=== PATIENT | male | born 1950 | race African-American/Black ===

== ENCOUNTER 2025-07-04 08:05 | Outpatient (CLI) | payer MEDICARE, OTHER, SELFPAY ==
--- OUTSIDE RECORDS SUMMARY | 2024-03-03 08:00 | XMS_ITS ---
Author Organization [facility] Address [address] [place] [address] Care Team Providers Care Operator And Truck Driver Name Role Phone Blake Rhodes Unavailable [phone] Medications Medication SIG (Take, Route, Frequency, Duration) Notes Start Date End Date Status Calcitriol 0.25 MCG 1 capsule Orally Twi ce a day; Duration: 09/01/2023 05/28/2024 Active Losartan Potassium 100 MG 1 tablet Orall y Once a day; Duration: 09/01/2023 Active Bumetanide 2 MG 1 tablet Orally Once a day; Duration: 90 days 06/09/2023 Active Calcitriol 0.25 MCG 1 capsule Orally Onc e a day; Duration: 90 day(s) 06/09/2023 03/05/2024 Active Losartan Potassium 50 MG 1 tablet Orally Once a day; Duration: 90 02/03/2023 Active Losartan Potassium 50 MG 1 tablet Orally Once a day; Duration: 11/18/2022 Active Social History Sex Assigned At : Social History Observation Description Sex Assigned At Male Encounters Encounter Location Date Provider Diagnosis [place] [facility] [address] [facility] [address] [place] [address] 03/03/2024 Blake Rhodes Chronic kidney disease, stage 3a N18.31 ; Essential hypertension I10 ; Unspecified atrial fibrillation I48.91 ; Heart failure, unspecified I50.9 and Vitamin D deficiency, unspecified E55.9 Assessments Encounter Date Diagnosis (ICD Code) Assessment Notes Treatment Notes Treatment Clinical Notes Section Notes 03/03/2024 Chronic kidney disease, stage 3a (ICD-10 - N18.31) 03/03/2024 Essential hypertension (ICD-10 - I10) 03/03/2024 Unspecified atrial fibrillation (ICD-10 - I48.91) 03/03/2024 Heart failure, unspecified (ICD-10 - I50.9) 03/03/2024 Vitamin D deficiency, unspecified (ICD-10 - E55.9) Plan Of Treatment Next Appt Details Provider Name:Blake Carmelo , 07/05/2025 04:00:00 PM, [address] [facility], [place], [address], Progress Notes * Matt SHELTONDOB: 0 (75 yo M)Acc No.[id number]:03/03/2024 Progress Notes Patient: Matt LINARES Provider: Bright MADSEN MD, F.A.C.P, F.A.S.N. :1950 A ge:74 Y S ex:Male Date:03/03/2024 Address:[address] [place], [place] [id number] Subjective: * Chief Complaints: * * Medical History: * Medications: T aking Losartan Potassium 50 MG Tablet 1 tablet Orally Once a day , Taking Losartan Potassium 50 MG Tablet 1 tablet Orally Once a day , Taking Calcitriol 0.25 MCG Capsule 1 capsule Orally Once a day , stop date 03/05/2024, Taking Bumetanide 2 MG Tablet 1 tablet Orally Once a day , Taking Losartan Potassium 100 MG Tablet 1 tablet Orally Once a day , Taking Calcitriol 0.25 MCG Capsule 1 capsule Orally Twice a day , stop date 05/28/2024 Objective: * Vitals: Assessment: * Assessment: 1. C hronic kidney disease, stage 3a - N18.31 (Primary) 2 . E ssential hypertension - I10 3 . U nspecified atrial fibrillation - I48.91 4 .?Heart failure, unspecified - I50.9 5 . V itamin D deficiency, unspecified - E55.9 Plan: * Treatment: * Billing Information: * Visit Code: 65240 Office Visit, Est Pt., Level 4. * Procedure Codes: * Electronic signature of Kimberley Rhodes MD on 07/04/2025 at 08:17 AM CHIEF DEVELOPMENT OFFICER Sign off status: Pending * Provider: Bright MADSEN MD, Clarisa.Marcos.C.P, F.A.S.N. Date: 0 03/03/2024 Generated for Printing/Faxing/eTransmitting on: 1 09/03/2024 08:17 AM CHIEF DEVELOPMENT OFFICER
--- OUTSIDE RECORDS SUMMARY | 2024-05-19 07:30 | XMS_ITS ---
Author Organization [facility] Address [address] [place] [address] Care Team Providers Care Java Lead Name Role Phone Blake Rhodes Unavailable [phone] Medications Medication SIG (Take, Route, Frequency, Duration) Notes Start Date End Date Status Bumetanide 2 MG 1 tablet Orally Once a day; Duration: 90 days 06/09/2023 Active Losartan Potassium 100 MG 1 tablet Orall y Once a day; Duration: 09/01/2023 Active Calcitriol 0.25 MCG 1 capsule Orally Twi ce a day; Duration: 09/01/2023 05/28/2024 Active Losartan Potassium 50 MG 1 tablet Orally Once a day; Duration: 11/18/2022 Active Losartan Potassium 50 MG 1 tablet Orally Once a day; Duration: 02/03/2023 Active Ergocalciferol 1.25 MG (28858 UT) 1 capsule Orally twice a week; Duration: 90 day(s) 03/03/2024 11/28/2024 Active Social History Sex Assigned At : Social History Observation Description Sex Assigned At Male Encounters Encounter Location Date Provider Diagnosis [place] [facility] [address] [facility] [address] [place] [address] 05/19/2024 Blake Rhodes Chronic kidney disease, stage 3a N18.31 ; Essential hypertension I10 ; Unspecified atrial fibrillation I48.91 ; Heart failure, unspecified I50.9 and Vitamin D deficiency, unspecified E55.9 Assessments Encounter Date Diagnosis (ICD Code) Assessment Notes Treatment Notes Treatment Clinical Notes Section Notes 05/19/2024 Chronic kidney disease, stage 3a (ICD-10 - N18.31) 05/19/2024 Essential hypertension (ICD-10 - I10) 05/19/2024 Unspecified atrial fibrillation (ICD-10 - I48.91) 05/19/2024 Heart failure, unspecified (ICD-10 - I50.9) 05/19/2024 Vitamin D deficiency, unspecified (ICD-10 - E55.9) Plan Of Treatment Next Appt Details Provider Name:Blake Carmelo , 07/05/2025 04:00:00 PM, [address] , [place], [address], Progress Notes * Matt SHELTONDOB: 0 (75 yo M)Acc No.[id number]:05/19/2024 Progress Notes Patient: Matt LINARES Provider: Bright MADSEN MD, F.Marcos.C.P, F.A.S.N. :1950 A ge:74 Y S ex:Male Date:05/19/2024 Address:[address] [place], [place] [id number] Subjective: * Chief Complaints: * * Medical History: * Medications: T aking Ergocalciferol 1.25 MG (33262 UT) Capsule 1 capsule Orally twice a week , stop date 11/28/2024, Taking Losartan Potassium 50 MG Tablet 1 tablet Orally Once a day , Taking Losartan Potassium 50 MG Tablet 1 tablet Orally Once a day , Taking Bumetanide 2 MG Tablet 1 tablet [...] Treatment: * Billing Information: * Visit Code: 82649 Office Visit, Est Pt., Level 4. * Procedure Codes: * Electronic signature of Kimberley Rhodes MD on 07/04/2025 at 08:16 AM WINE MASTER Sign off status: Pending * Provider: Bright MADSEN MD, Clarisa.Marcos.C.P, F.A.S.N. Date: 0 05/19/2024 Generated for Printing/Fagoldyg/eTransmitting on: 1 09/03/2024 08:16 AM WINE MASTER
--- OUTSIDE RECORDS SUMMARY | 2024-09-01 07:30 | XMS_ITS ---
Author Organization [facility] Address [address] [place] [address] Care Team Providers Care Emergency Management Specialist Name Role Phone Carmelo Blake Unavailable [phone] Social History Sex Assigned At : Social History Observation Description Sex Assigned At Male Problems Problem Type SNOMED Code ICD Code Onset Dates Problem Status W/U Status Risk Notes Problem Renal osteodystrophy (40731233) Renal osteodystrophy (N25.0) Active confirmed Problem Edema (49665854) Edema, unspecified (R60.9) Active confirmed Problem Small kidney (058001896) Small kidney, unspecified (N27.9) Active confirmed Problem Proteinuria (28437588) Proteinuria, unspecified (R80.9) Active confirmed Encounters Encounter Location Date Provider Diagnosis [facility] [place] [facility] [address] [place] [address] 09/01/2024 Blake Rhodes Chronic kidney disea se, stage 3a N18.31 ; Renal osteodystrophy N25.0 ; Edema, unspecified R60.9 ; Proteinuria, unspecified R80.9 ; Small kidney, unspecified N27.9 and Vitamin D deficiency, unspecified E55.9 Assessments Encounter Date Diagnosis (ICD Code) Assessment Notes Treatment Notes Treatment Clinical Notes Section Notes 09/01/2024 Chronic kidney disease, stage 3a (ICD-10 - N18.31) 09/01/2024 Renal osteodystrophy (ICD-10 - N25.0) 09/01/2024 Edema, unspecified (ICD-10 - R60.9) 09/01/2024 Proteinuria, unspecified (ICD-10 - R80.9) 09/01/2024 Small kidney, unspecified (ICD-10 - N27.9) 09/01/2024 Vitamin D deficiency, unspecified (ICD-10 - E55.9) Plan Of Treatment Next Appt Details Provider Name:Blake Rhodes , 07/05/2025 04:00:00 PM, [address] [facility], [place], [address], Progress Notes * Matt SHELTONDOB: 0 (75 yo M)Acc No.[id number]:09/01/2024 Progress Notes Patient: Matt LINARES Provider: Bright MADSEN MD, F.A.C.P, F.A.S.N. :1950 A ge:74 Y S ex:Male Date:09/01/2024 Address:[address] [place], [place] [id number] Subjective: * Chief Complaints: * * Medical History: Objective: * Vitals: Assessment: * Assessment: 1. C hronic kidney disease, stage 3a - N18.31 (Primary) 2 . R enal osteodystrophy - N25.0 3 . E monique, unspecified - R60.9 4 . P roteinuria, unspecified - R80.9 5 . S mall kidney, unspecified - N27.9 6 . V itamin D deficiency, unspecified - E55.9 Plan: * Treatment: * Billing Information: * Visit Code: 80518 Office Visit, Est Pt., Level 4. * Procedure Codes: * Electronic signature of Kimberley Rhodes MD on 07/04/2025 at 08:16 AM BAND NAILER Sign off status: Pending * Provider: Bright MADSEN MD, F.A.C.P, F.A.S.N. Date: 0 09/01/2024 Generated for Printing/Faxing/eTransmitting on: 09/03/2024 08:16 AM BAND NAILER
--- OUTSIDE RECORDS SUMMARY | 2024-10-27 07:30 | XMS_ITS ---
Author Organization [facility] Address [address] [place] [address] Care Team Providers Care Box Coverer Hand Name Role Phone Carmelo Blake Unavailable [phone] Social History Sex Assigned At : Social History Observation Description Sex Assigned At Male Encounters Encounter Location Date Provider Diagnosis [place] [facility] [address] [facility] [address] [place] [address] 10/27/2024 Blake Rhodes Chronic kidney disea se, stage 2 (mild) N18.2 ; Essential hypertension I10 ; Unspecified atrial fibrillation I48.91 ; Heart failure, unspecified I50.9 ; Vitamin D deficiency, unspecified E55.9 ; Renal osteodystrophy N25.0 ; Edema, unspecified R60.9 ; Small kidney, unspecified N27.9 ; Proteinuria, unspecified R80.9 ; Secondary hyperparathyroidism of renal origin N25.81 ; 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 and Type 1 diabetes mellitus with hypoglycemia without coma E10.649 Assessments Encounter Date Diagnosis (ICD Code) Assessment Notes Treatment Notes Treatment Clinical Notes Section Notes 10/27/2024 Chronic kidney disea se, stage 2 (mild) (ICD-10 - N18.2) 10/27/2024 Essential hypertensi on (ICD-10 - I10) 10/27/2024 Unspecified atrial fibrillation (ICD-10 - I48.91) 10/27/2024 Heart failure, unspecified (ICD-10 - I50.9) 10/27/2024 Vitamin D deficiency , unspecified (ICD-10 - E55.9) 10/27/2024 Renal osteodystrophy (ICD-10 - N25.0) 10/27/2024 Edema, unspecified (ICD-10 - R60.9) 10/27/2024 Small kidney, unspecified (ICD-10 - N27.9) 10/27/2024 Proteinuria, unspecified (ICD-10 - R80.9) 10/27/2024 Secondary hyperparathyroidism of renal origin (ICD-10 - N25.81) 10/27/2024 Mixed disorder of acid-base balance (ICD-10 - E87.4) 10/27/2024 Type 1 diabetes mellitus with hypoglycemia without coma (ICD-10 - E10.649) Plan Of Treatment Next Appt Details Provider Name:Blake Rhodes , 07/05/2025 04:00:00 PM, [address] [facility], [place], [address], Progress Notes * Matt SHELTONDOB: 0 (75 yo M)Acc No.[id number]:10/27/2024 Progress Notes Patient: Matt LINARES Provider: Bright MADSEN MD, F.A.C.P, F.A.S.N. :1950 A ge:74 Y S ex:Male Date:10/27/2024 Address:[address] [place], [place] [id number] Subjective: * Chief Complaints: * * Medical History: Objective: * Vitals: Assessment: * Assessment: 1. C hronic kidney disease, stage 2 (mild) - N18.2 (Primary) 2 . E ssential hypertension - I10 3 . U nspecified atrial fibrillation - I48.91 ?4. H eart failure, unspecified - I50.9 5 . V itamin D deficiency, unspecified - E55.9 6 . R enal osteodystrophy - N25.0 7 . E monique, unspecified - R60.9 8 . S mall kidney, unspecified - N27.9 9 .?Proteinuria, unspecified - R80.9 1 0. S econdary hyperparathyroidism of renal origin - N25.81 1 1. M ixed disorder of acid-base balance - E87.4 ?12. T ype 1 diabetes mellitus with hypoglycemia without coma - E10.649 Plan: * Treatment: * Billing Information: * Visit Code: 63979 Office Visit, Est Pt., Level 4. * Procedure Codes: * Electronic signature of Kimberley Rhodes MD on 07/04/2025 at 08:16 AM DIRECTOR FOOD SAFETY Sign off status: Pending * Provider: Bright MADSEN MD, F.A.C.P, F.A.S.N. Date: 0 10/27/2024 Generated for Printing/Faxing/eTransmitting on: 1 09/03/2024 08:16 AM DIRECTOR FOOD SAFETY
--- OUTSIDE RECORDS SUMMARY | 2024-12-29 06:45 | XMS_ITS ---
Author Organization [facility] Address [address] [address] [place] [address] Care Team Providers Care Seasonal Sales Associate Name Role Phone Carmelo Blake Unavailable [phone] Medications Medication SIG (Take, Route, Frequency, Duration) Notes Start Date End Date Status Losartan Potassium 100 MG 1 tablet Orall y Once a day; Duration: 09/01/2023 Active Bumetanide 2 MG 1 tablet Orally Once a day; Duration: 90 days 06/09/2023 Active Losartan Potassium 50 MG 1 tablet Orally Once a day; Duration: 02/03/2023 Active Losartan Potassium 50 MG 1 tablet Orally Once a day; Duration: 11/18/2022 Active Social History Sex Assigned At : Social History Observation Description Sex Assigned At Male Problems Problem Type SNOMED Code ICD Code Onset Dates Problem Status W/U Status Risk Notes Problem Benign prostatic hypertrophy without outflow obstruction (003685163) Benign prostatic hyperplasia without lower urinary tract symptoms (N40.0) Active confirmed Encounters Encounter Location Date Provider Diagnosis [place] [facility] [address] [facility] [address] [place] [address] 12/29/2024 Blake Rhodes Chronic kidney disea se, stage 2 (mild) N18.2 ; Essential hypertension I10 ; Unspecified atrial fibrillation I48.91 ; Heart failure, unspecified I50.9 ; Vitamin D deficiency, unspecified E55.9 ; Renal osteodystrophy N25.0 ; Edema, unspecified R60.9 ; Small kidney, unspecified N27.9 ; Proteinuria, unspecified R80.9 ; Elevated prostate specific antigen (PSA) R97.20 and Benign prostatic hyperplasia without lower urinary tract symptoms N40.0 Assessments Encounter Date Diagnosis (ICD Code) Assessment Notes Treatment Notes Treatment Clinical Notes Section Notes 12/29/2024 Chronic kidney disease, stage 2 (mild) (ICD-10 - N18.2) 12/29/2024 Essential hypertension (ICD-10 - I10) 12/29/2024 Unspecified atrial fibrillation (ICD-10 - I48.91) 12/29/2024 Heart failure, unspecified (ICD-10 - I50.9) 12/29/2024 Vitamin D deficiency, unspecified (ICD-10 - E55.9) 12/29/2024 Renal osteodystrophy (ICD-10 - N25.0) 12/29/2024 Edema, unspecified (ICD-10 - R60.9) 12/29/2024 Small kidney, unspecified (ICD-10 - N27.9) 12/29/2024 Proteinuria, unspecified (ICD-10 - R80.9) 12/29/2024 Elevated prostate specific antigen (PSA) (ICD-10 - R97.20) 12/29/2024 Benign prostatic hyperplasia without lower urinary tract symptoms (ICD-10 - N40.0) Plan Of Treatment Next Appt Details Provider Name:Blake Rhodes , 07/05/2025 04:00:00 PM, [address] [place] [address], [address], Progress Notes * Matt SHELTONDOB: 0 (75 yo M)Acc No.[id number]:12/29/2024 Progress Notes Patient: Matt LINARES Provider: Bright MADSEN MD, F.A.C.P, F.A.S.N. :1950 A ge:74 Y S ex:Male Date:12/29/2024 Address:[address] [place], [place] [id number] Subjective: * Chief Complaints: * * Medical History: * Medications: T aking Losartan Potassium 50 MG Tablet 1 tablet Orally Once a day , Taking Losartan Potassium 50 MG Tablet 1 tablet Orally Once a day , Taking Bumetanide 2 MG Tablet 1 tablet Orally Once a day , Taking Losartan Potassium 100 MG Tablet 1 tablet Orally Once a day Objective: * Vitals: Assessment: * Assessment: 1. [...] 9 .?Proteinuria, unspecified - R80.9 1 0. E levated prostate specific antigen (PSA) - R97.20 1 1. B enign prostatic hyperplasia without lower urinary tract symptoms - N40.0 Plan: * Treatment: * Billing Information: * Visit Code: 84158 Office Visit, Est Pt., Level 4. * Procedure Codes: * Electronic signature of Kimberley Rhodes MD on 07/04/2025 at 08:15 AM AVIONICS ENGINEER Sign off status: Pending * Provider: Bright MADSEN MD, F.A.C.P, F.A.S.N. Date: 0 12/29/2024 Generated for Printing/Faxing/eTransmitting on: 09/03/2024 08:15 AM AVIONICS ENGINEER
--- OUTSIDE RECORDS SUMMARY | 2025-03-30 07:30 | XMS_ITS ---
Author Organization [facility] Address [address] [place] [address] Care Team Providers Care Pool Table Operator Name Role Phone CarmeloLuisaBlake Unavailable [phone] Social History Sex Assigned At : Social History Observation Description Sex Assigned At Male Problems Problem Type SNOMED Code ICD Code Onset Dates Problem Status W/U Status Risk Notes Problem Chronic kidney disease stage 3A (disorder) (564861382) Chronic kidney disease, stage 3a (N18.31) Active confirmed Problem Metabolic disorder (26201837) Metabolic disorder, unspecified (E88.9) Active confirmed Problem Secondary hyperparathyroidism of renal origin (02547259) Secondary hyperparathyroidism of renal origin (N25.81) Active confirmed Encounters Encounter Location Date Provider Diagnosis [facility] [place] [facility] [address] [place] [address] 03/30/2025 Blake Rhodes Chronic kidney disea se, stage 3a N18.31 ; Essential hypertension I10 ; Unspecified atrial fibrillation I48.91 ; Heart failure, unspecified I50.9 ; Vitamin D deficiency, unspecified E55.9 ; Renal osteodystrophy N25.0 ; Edema, unspecified R60.9 ; Small kidney, unspecified N27.9 ; Proteinuria, unspecified R80.9 ; Benign prostatic hyperplasia without lower urinary tract symptoms N40.0 ; Metabolic disorder, unspecified E88.9 and Secondary hyperparathyroidism of renal origin N25.81 Assessments Encounter Date Diagnosis (ICD Code) Assessment Notes Treatment Notes Treatment Clinical Notes Section Notes 03/30/2025 Chronic kidney disea se, stage 3a (ICD-10 - N18.31) 03/30/2025 Essential hypertensi on (ICD-10 - I10) 03/30/2025 Unspecified atrial fibrillation (ICD-10 - I48.91) 03/30/2025 Heart failure, unspecified (ICD-10 - I50.9) 03/30/2025 Vitamin D deficiency , unspecified (ICD-10 - E55.9) 03/30/2025 Renal osteodystrophy (ICD-10 - N25.0) 03/30/2025 Edema, unspecified (ICD-10 - R60.9) 03/30/2025 Small kidney, unspecified (ICD-10 - N27.9) 03/30/2025 Proteinuria, unspecified (ICD-10 - R80.9) 03/30/2025 Benign prostatic hyperplasia without lower urinary tract symptoms (ICD-10 - N40.0) 03/30/2025 Metabolic disorder, unspecified (ICD-10 - E88.9) 03/30/2025 Secondary hyperparathyroidism of renal origin (ICD-10 - N25.81) Plan Of Treatment Next Appt Details Provider Name:Blake Rhodes , 07/05/2025 04:00:00 PM, [address] [place] [address], [place], [address], Progress Notes * Matt SHELTONDOB: 0 (75 yo M)Acc No.[id number]:03/30/2025 Progress Notes Patient: Matt LINARES Provider: Bright MADSEN MD, F.A.C.P, F.A.S.N. :1950 A ge:75 Y S ex:Male Date:03/30/2025 Address:[address] [place], [place] [id number] Subjective: * Chief Complaints: Objective: Assessment: * Assessment: 1. C hronic kidney [...] S mall kidney, unspecified - N27.9 9 . P roteinuria, unspecified - R80.9 1 0. B enign prostatic hyperplasia without lower urinary tract symptoms - N40.0 1 1. M etabolic disorder, unspecified - E88.9? 12. S econdary hyperparathyroidism of renal origin - N25.81 Plan: * Billing Information: * Visit Code: 38017 Office Visit, Est Pt., Level 4. * Procedure Codes: * Electronic signature of Kimberley Rhodes MD on 07/04/2025 at 08:16 AM HOOK AND EYE ATTACHER Sign off status: Pending * Provider: Bright MADSEN MD, F.A.C.P, F.A.S.N. Date: 0 03/30/2025 Generated for Printing/Faxing/eTransmitting on: 1 09/03/2024 08:16 AM HOOK AND EYE ATTACHER
--- OUTSIDE RECORDS SUMMARY | 2025-04-27 09:30 | XMS_ITS ---
Author Organization [facility] Address [address] [address] Care Team Providers Care Geneticist Name Role Phone Aurelio Rhodesjit Unavailable [phone] Social History Sex Assigned At : Social History Observation Description Sex Assigned At Male Encounters Encounter Location Date Provider Diagnosis [place] [facility] [address] [facility] [address] [place] [address] 04/27/2025 Blake Rhodes Plan Of Treatment Next Appt Details Provider Name:Blake Carmelo , 07/05/2025 04:00:00 PM, [address] [place] [address], [address], Progress Notes * Matt SHELTONDOB: 0 (75 yo M)Acc No.[id number]:04/27/2025 Patient: Matt LINARES Provider: Bright MADSEN MD, F.Marcos.C.P, F.A.S.N. :1950 A ge:75 Y S ex:Male Date:04/27/2025 Address:[address] [place], [place] [phone] Subjective: * Chief Complaints: Objective: Assessment: Plan: * Billing Information: * Visit Code: * Procedure Codes: * Electronic signature of Kimberley Rhodes MD on 07/04/2025 at 08:16 AM HOLISTIC HEALTH PRACTITIONER Sign off status: Pending * Provider: Bright MADSEN MD, F.Marcos.C.P, F.A.S.N. Date: 0 04/27/2025 Generated for Printing/Faxing/eTransmitting on: 1 09/03/2024 08:16 AM HOLISTIC HEALTH PRACTITIONER
--- OUTSIDE RECORDS SUMMARY | 2025-04-30 08:45 | XMS_ITS ---
Author Organization [facility] Address [address] [place] [address] Care Team Providers Care Carbon Capture Power Plant Operator Name Role Phone Blake Rhodes Unavailable [phone] Social History Sex Assigned At : Social History Observation Description Sex Assigned At Male Encounters Encounter Location Date Provider Diagnosis [place] [facility] [address] [facility] [address] [place] [address] 04/30/2025 Blake Rhodes Chronic kidney disea se, stage [...] Treatment Notes Treatment Clinical Notes Section Notes 04/30/2025 Chronic kidney disea se, stage 3a (ICD-10 - N18.31) 04/30/2025 Essential hypertensi on (ICD-10 - I10) 04/30/2025 Unspecified atrial fibrillation (ICD-10 - I48.91) 04/30/2025 Heart failure, unspecified (ICD-10 - I50.9) 04/30/2025 Vitamin D deficiency , unspecified (ICD-10 - E55.9) 04/30/2025 Renal osteodystrophy (ICD-10 - N25.0) 04/30/2025 Edema, unspecified (ICD-10 - R60.9) 04/30/2025 Small kidney, unspecified (ICD-10 - N27.9) 04/30/2025 Proteinuria, unspecified (ICD-10 - R80.9) 04/30/2025 Benign prostatic hyperplasia without lower urinary tract symptoms (ICD-10 - N40.0) 04/30/2025 Metabolic disorder, unspecified (ICD-10 - E88.9) 04/30/2025 Secondary hyperparathyroidism of renal origin (ICD-10 - N25.81) Plan Of Treatment Next Appt Details Provider Name:Blake Rhodes , 07/05/2025 04:00:00 PM, [address] [place] [address], [place], [address], Progress Notes * Matt SHELTONDOB: 0 (75 yo M)Acc No.[id number]:04/30/2025 Patient: Matt LINARES Provider: Bright MADSEN MD, F.A.C.P, F.A.S.N. :1950 A ge:75 Y S ex:Male Date:04/30/2025 Address:[address] [place], [place] [phone] Subjective: * Chief Complaints: Objective: Assessment: * [...] Rhodes MD on 07/04/2025 at 08:16 AM PHARMACEUTICAL DEVELOPMENT TECHNICIAN Sign off status: Pending * Provider: Bright MADSEN MD, F.A.C.P, F.A.S.N. Date: 0 04/30/2025 Generated for Printing/Faxing/eTransmitting on: 1 09/03/2024 08:16 AM PHARMACEUTICAL DEVELOPMENT TECHNICIAN
--- OUTSIDE RECORDS SUMMARY | 2025-06-14 09:15 | XMS_ITS ---
Author Organization [facility] Address [address] [facility] [address] [facility] [address] [place] [address] Care Team Providers Care Chief Media Officer Name Role Phone Blake Rhodes Unavailable [phone] Social History Sex Assigned At : Social History Observation Description Sex Assigned At Male Encounters Encounter Location Date Provider Diagnosis [facility] [address] [place] [address] 06/14/2025 Bright Rhodes Plan Of Treatment Next Appt Details Provider Name:Blake Rhodes , 07/05/2025 04:00:00 PM, [address] , [place], [address], Progress Notes * Matt SHELTONDOB: 0 (75 yo M)Acc No.[id number]:06/14/2025 Progress Notes Patient: Matt LINARES Provider: Bright MADSEN MD, F.Marcos.C.P, F.A.S.N. :1950 A ge:75 Y S ex:Male Date:06/14/2025 Address:[address] [place], [place] [id number] Subjective: * Chief Complaints: Objective: Assessment: Plan: * Billing Information: * Visit Code: * Procedure Codes: * Electronic signature of Kimberley Rhodes MD on 07/04/2025 at 08:15 AM ENTERPRISE APPLICATION ANALYST Sign off status: Pending * Provider: Bright MADSEN MD, F.Marcos.C.P, F.A.S.N. Date: Generated for Printing/Faxing/eTransmitting on: 09/03/2024 08:15 AM ENTERPRISE APPLICATION ANALYST
--- NOTE | ~2025-07-04 | NM_ITS ---
EXAMINATION: NM bone scan whole body DATE: 07/04/2025 13:37 INDICATION: Prostate cancer TECHNIQUE: 25 mCi mCi Tc-99m HDP was administered intravenously. Delayed whole-body scintigrams were obtained. COMPARISON: There are no relevant imaging studies at our institution. FINDINGS: No suspicious scintigraphic uptake seen to confirm metastatic bone disease. Scattered areas of degenerative appearing changes in both shoulders, both knees, and the right great toe MTP joint region noted. Extensive uptake in the left hip region also consistent with advanced osteoarthritis. Punctate area of increased activity in the xiphoid region appears correspond to bony changes in this area on CT exam. Midline calvarial uptake likely associated with falcine calcification. Mild radiotracer uptake in the paranasal region may represent underlying paranasal sinus disease. IMPRESSION: 1. No suspicious radiotracer uptake for metastatic disease. 2. Diffuse osteoarthritic areas of benign-appearing radiotracer uptake including advanced disease in the left hip. Reviewed, dictated and finalized at location A. RNEY RECRUITER IMPRESSION: 1. No suspicious radiotracer uptake for metastatic disease. 2. Diffuse osteoarthritic areas of benign-appearing radiotracer uptake includin g advanced disease in the left hip.
--- NOTE | ~2025-07-04 | CT_ITS ---
PROCEDURE: [CT of the abdomen and pelvis with contrast] INDICATION: Prostate cancer COMPARISON(S): None. TECHNIQUE: Multiplanar images of the abdomen and pelvis were obtained with intravenous contrast solution.. Diagnostic sensitivity is limited due to lack of oral contrast. Dose lowering technique and dose optimization was utilized. FINDINGS: Inferior thorax: No significant abnormality is seen. Liver: Normal. Gallbladder: The gallbladder is present. There are gallstones. Pancreas: Within normal limits. Spleen: Normal in size and appearance. Adrenal glands: There are no masses seen. Kidneys: There is no hydronephrosis seen on either side. No urinary tract stones are seen. There is a cyst in the right kidney and a probable tiny cyst in the left kidney. GI tract: There is no evidence of bowel obstruction. The appendix is seen and appears normal. Major vessels: The major vessels are normal in caliber. Sex specific pelvic organs: The prostate is enlarged with some small calcifications. Bladder: The bladder appears normal. Bones: There is scoliosis, convex to the left the lumbar spine and to the right in the lower thoracic spine. There are degenerative changes. There are multiple disc spaces showing vacuum disc phenomenon. There is very severe osteoarthritic type change of the left hip. There is deformity of the proximal femur with severe subchondral cyst formation and subchondral sclerosis. There is essentially complete loss of joint space in the weightbearing direction. There also appears to be bowing of the femoral di aphysis. No suspicious sclerotic lesions are seen. Lymph nodes: There is bilateral inguinal adenopathy. Largest node on the left is superior in location in the groin. It has a maximum dimension of 3.7 cm and a maximum short axis dimension of 1.5 cm. There are nonenlarged retroperitoneal lymph nodes. There are elongate lymph nodes on each side, left greater than right which abut the left common femoral and left external iliac vessels. The elongate, largest node on the right which extends into the pelvis has a short axis dimension of 1.1 cm. The longest dimension is difficult to assess because of the plane. Is estimated to have a length of approximately 5 cm. IMPRESSION: 1. Prostate CA, which is known 2. Pelvic adenopathy extending into the groins/superior anterior thighs. Other areas of multiple lymph nodes do not show any morphologic or size change, but these could still be diseased. Reviewed, dictated and finalized at location A. ORKING TECHNOLOGY INSTRUCTOR IMPRESSION: 1. Prostate CA, which is known 2. Pelvic adenopathy extending into the groins/superior anterior thighs. Other areas of multiple lymph nodes do not show any morphologic or size change, but t hese could still be diseased.
--- OUTSIDE RECORDS SUMMARY | 2025-07-04 08:16 | XMS_ITS | Clinical Summary ---
Author Organization [facility] Address [address] [place] [address] Phone Care Team Providers Care Distribution Estimator Name Role Phone Lynette Bentley MD Primary Care Provider Allergies No known active allergies Medications lidocaine (LIDODERM) 5 % Patch LIDOCAINE 5 % EXTERNAL PATCH 1 Active lisinopril (PRINIVIL, ZESTRIL) 10 MG Tablet Take by mouth. 1 Active furosemide (LASIX) 40 MG Tablet Take 40 mg by mouth daily. 2 Active tadalafil (CIALIS) 20 MG Tablet TAKE 1 TABLET BY MOUTH TWICE A WEEK NEEDED 2 Active ergocalciferol (VITAMIN D) 03602 UNIT Capsule once a week. Active atorvastatin (LIPITOR) 40 MG Tablet daily. Active losartan (COZAAR) 50 MG Tablet Take 50 mg by mouth daily. 3 Active calcitRIOL (ROCALTROL) 0.25 MCG Capsule Take 0.25 mcg by mouth daily. 3 Active tamsulosin (FLOMAX) 0.4 MG Capsule Take 1 Capsule by mouth daily. 3 Active Ferrous Sulfate (IRON PO) Take by mouth daily. 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 12/31/2020 History of pulmonary embolus (PE) 12/31/2020 Deep vein thrombosis (DVT) of left lower extremi ty 10/17/2020 Resolved Problems Problem Noted Date Diagnosed Date Resolved Date Chronic pulmonary embolism 10/17/2020 0 12/04/2021 Family History Medical History Relation Name Comments Diabetes Sister Relation Name Status Comments Father Mother Sister Social History Tobacco Use Types Packs/Day Years Used Date Smoking Tobacco: Never Smokeless Tobacco: Never Tobacco Cessation:Counseling Given: Not Answered Alcohol Use Standard Drinks/Week Comments Never 0 (1 standard drink = 0.6 oz pur e alcohol) Sex and Gender Information Value Date Recorded Sex Assigned at Not on file Legal Sex Male 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 Gender Identity Not on file Sexual Orientation Not on file Last Filed Vital Signs Vital Sign Reading Time Taken Comments Blood Pressure 148/73 11/16/2024 2:45 PM CDT Pulse 95 11/16/2024 2:45 PM CDT Temperature 37.2 C (99 F) 11/16/2024 2:45 PM CDT Respiratory Rate 18 11/16/2024 2:45 PM CDT Oxygen Saturation 95% 11/16/2024 2:45 PM CDT Inhaled Oxygen Concentration - - Weight 94.3 kg (208 lb) 11/16/2024 2:45 PM CDT Height 180.3 cm (5' 11) 12/10/2022 2:09 PM CDT Body Mass Index 29.01 12/10/2022 2:09 PM CDT Plan of Treatment Upcoming Encounters Date Type Department Care Team (Late st Contact Info) Description 11/19/2025 3:00 PM CDT Office Visit [facility] [address] [place] [phone] Cory Ortega MD [address] [place] [address] Discharge Disposition: Discharged to home or Selfcare 11/19/2025 3:30 PM CDT Lab [facility] [address] [place] [phone] Cory Ortega MD [address] [place] [address] Discharge Disposition: Discharged to home or Selfcare Health Maintenance Due Date Last Done Comments Hepatitis C Virus (HCV) Screening 1950 TdaP Immunization 1950 Cologuard 1995 Colonoscopy 1995 Colorectal Cancer Screening 1995 Immunochemical Fecal Occult Blood 1995 Pneumococcal Immunization (5 0+ years) (1 of 1 - PCV) 01/06/2000 Zoster Immunization (1 of 2) 01/06/2000 Medicare Initial AWV [id number] 12/22/2015 Respiratory Syncytial Virus (RSV) Immunization (Adult) (1 - 1-dose 75+ series) 2025 Influenza Immunization (#1) 2025 SARS-COV-2 Immunization ( - 2024- season) 2025 Hepatitis B Immunization Aged Out No longer eligible based on patient's age to complete this topic Human Papillomavirus (HPV) Immunization Aged Out No longer eligible b ased on patient's age to complete this topic Meningococcal Immunization (ACWY) Aged Out No longer eligible based on patient's age to complete this topic Rotavirus Immunization Aged Out No lo nger eligible based on patient's age to complete this topic Procedures Procedure Name Priority Date/Time Associated Diagnosis Comments INTERNAL MEDICINE CONSULT 05/17/2025 12:00 AM CDT LIPID PANEL 05/07/2025 12:00 AM CDT COMPLETE BLOOD COUNT (CBC) WITH DIFF 05/07/2025 12:00 AM CDT CMP (COMPREHENSIVE METABOLIC PANEL) 05/07/2025 12:00 AM CDT THYROXINE (T4) FREE 05/07/2025 1 2:00 AM CDT THYROID STIMULATING HORMONE (TSH) 05/07/2025 12:00 AM CDT VITAMIN B12 05/07/2025 12:00 AM CDT FOLIC ACID (FOLATE) 05/07/2025 1 2:00 AM CDT from Last 3 Months Results * INTERNAL MEDICINE CONSULT (05/17/2025 12:00 AM CDT) 05/17/2025 us Provider Scan GENERIC SCAN ORDERS CONSULT Loli glaser Result SCAN * VITAMIN B12 (05/07/2025 12:00 AM CDT) 05/07/2025 us Provider Scan CHEMISTRY ORDERABLES Final Resul t Performing Organization Address [facility] de Phone Number SCAN * THYROXINE (T4) FREE (05/07/2025 12:00 AM CDT) 05/07/2025 us Provider Scan CHEMISTRY ORDERABLES Final Resul t Performing Organization Address [facility] de Phone Number SCAN * THYROID STIMULATING HORMONE (TSH) (05/07/2025 12:00 AM CDT) 05/07/2025 us Provider Scan CHEMISTRY ORDERABLES Final Resul t Performing Organization Address [facility] de Phone Number SCAN * LIPID PANEL (05/07/2025 12:00 AM CDT) CHOLESTEROL 177 SCAN HDL CHOLESTEROL 44 SCAN LDL 116 SCAN 05/07/2025 us Provider Scan CHEMISTRY ORDERABLES Final Resul t Performing Organization Address [facility] de Phone Number SCAN * FOLIC ACID (FOLATE) (05/07/2025 12:00 AM CDT) 05/07/2025 us Provider Scan CHEMISTRY ORDERABLES Final Resul t Performing Organization Address [facility] de Phone Number SCAN * CMP (COMPREHENSIVE METABOLIC PANEL) (05/07/2025 12:00 AM CDT) 05/07/2025 us Provider Scan CHEMISTRY ORDERABLES Final Resul t Performing Organization Address [facility] de Phone Number SCAN * COMPLETE BLOOD COUNT (CBC) WITH DIFF (05/07/2025 12:00 AM CDT) 05/07/2025 us Provider Scan HEMATOLOGY ORDERABLES Final Resu lt SCAN from Last 3 Months Insurance MEDICARE C AETNA Care Teams Distribution Estimator Relationship Specialty Start Date End Date Lynette Bentley MD [address] [place], [place] [address] PCP - General Internal Medicine 10/17/20
--- OUTSIDE RECORDS SUMMARY | 2025-07-04 08:16 | XMS_ITS | Patient Health Record ---
Author Organization [facility] Address [address] [place] [address] Care Team Providers Care Medical Review Specialist Name Role Phone Blake Rhodes Unavailable [phone] Reason For Referral No Information Medications Medication SIG (Take, Route, Frequency, Duration) Notes Start Date End Date Status Flomax 0.4 MG 1 capsule Orally onc e at bedtime; Duration: 90 days 12/29/2024 12/24/2025 Active Ergocalciferol 1.25 MG (91425 UT) 1 capsule Orally twice a week; Duration: 60 days 03/30/2025 09/25/2025 Active Losartan Potassium 100 MG 1 tablet Orall y Once a day; Duration: 90 09/01/2023 Active Proscar 5 MG 1 tablet Orally Once a day; Duration: 30 days 03/30/2025 Active Bumetanide 2 MG 1 tablet Orally Once a day; Duration: 90 days 06/09/2023 Active Tamsulosin HCl 0.4 MG 1 capsule at bedti me Orally Once a day; Duration: 90 days 05/03/2025 04/28/2026 Active Losartan Potassium 50 MG 1 tablet Orally Once a day; Duration: 90 02/03/2023 Active Losartan Potassium 50 MG 1 tablet Orally Once a day; Duration: 11/18/2022 Active Social History Sex Assigned At : Social History Observation Description Sex Assigned At Male Problems Problem Type SNOMED Code ICD Code Onset Dates Problem Status W/U Status Risk Notes Problem Vitamin D deficiency (84321224) Vitamin D deficiency, unspecified (E55.9) Active confirmed Problem Metabolic disorder (58575832) Metabolic disorder, unspecified (E88.9) Active confirmed Problem Atrial fibrillation (71829088) Unspecified atrial fibrillation (I48.91) Active confirmed Problem Heart failure (07994124) Heart failure, unspecified (I50.9) Active confirmed Problem Renal osteodystrophy (24497149) Renal osteodystrophy (N25.0) Active confirmed Problem Secondary hyperparathyroidism of renal origin (52261902) Secondary hyperparathyroidism of renal origin (N25.81) Active confirmed Problem Small kidney (246581506) Small kidney, unspecified (N27.9) Active confirmed Problem Edema (22774104) Edema, unspecif ied (R60.9) Active confirmed Problem Proteinuria (90989861) Proteinuria, unspecified (R80.9) Active confirmed Problem Benign prostatic hypertrophy without outflow obstruction (849614558) Benign prostatic hyperplasia without lower urinary tract symptoms (N40.0) Active confirmed Problem Essential hypertension (13731796) Essential hypertension (I10) Active confirmed Problem Chronic kidney disease stage 3A (disorder) (075478924) Chronic kidney disease, stage 3a (N18.31) Active confirmed Encounters Encounter Location Date Provider Diagnosis [facility] [place] [facility] [address] [place] [address] 09/01/2024 Blake Rhodes Chronic kidney disea se, stage 3a N18.31 ; Renal osteodystrophy N25.0 ; Edema, unspecified R60.9 ; Proteinuria, unspecified R80.9 ; Small kidney, unspecified N27.9 and Vitamin D deficiency, unspecified E55.9 [place] [facility] [address] [address] 10/27/2024 Blake Rhodes Chronic kidney disea se, [...] diabetes mellitus with hypoglycemia without coma E10.649 [place] [address] [address] 12/29/2024 Blake Rhodes Chronic kidney disea se, [...] hyperplasia without lower urinary tract symptoms N40.0 [facility] [place] [facility] [address] [place] [address] 03/30/2025 Blake Rhodes Chronic kidney disea se, [...] and Secondary hyperparathyroidism of renal origin N25.81 [facility] [address] [place] [address] 04/30/2025 Blake Rhodes Chronic kidney disea se, [...] and Secondary hyperparathyroidism of renal origin N25.81 [facility] [place] [facility] [address] [place] [address] 12/29/2024 Blake Rhodes [place] [address] [address] 03/30/2025 Blake Hernandez [address] [place] [address] 05/03/2025 Blake Rhodes Assessments Encounter Date Diagnosis (ICD Code) Assessment Notes Treatment Notes Treatment Clinical Notes Section Notes 09/01/2024 Chronic kidney disea se, stage 3a (ICD-10 - N18.31) 10/27/2024 Chronic kidney disea se, stage 2 (mild) (ICD-10 - N18.2) 10/27/2024 Essential hypertensi on (ICD-10 - I10) 12/29/2024 Chronic kidney disea se, stage 2 (mild) (ICD-10 - N18.2) 12/29/2024 Essential hypertensi on (ICD-10 - I10) 03/30/2025 Essential hypertensi on (ICD-10 - I10) 03/30/2025 Chronic kidney disea se, stage 3a (ICD-10 - N18.31) 04/30/2025 Chronic kidney disea se, stage 3a (ICD-10 - N18.31) 04/30/2025 Essential hypertensi on (ICD-10 - I10) 03/30/2025 Unspecified atrial fibrillation (ICD-10 - I48.91) 12/29/2024 Unspecified atrial fibrillation (ICD-10 - I48.91) 10/27/2024 Unspecified atrial fibrillation (ICD-10 - I48.91) 09/01/2024 Renal osteodystrophy (ICD-10 - N25.0) 09/01/2024 Edema, unspecified (ICD-10 - R60.9) 10/27/2024 Heart failure, unspecified (ICD-10 - I50.9) 12/29/2024 Heart failure, unspecified (ICD-10 - I50.9) 03/30/2025 Heart failure, unspecified (ICD-10 - I50.9) 04/30/2025 Unspecified atrial fibrillation (ICD-10 - I48.91) 04/30/2025 Heart failure, unspecified (ICD-10 - I50.9) 03/30/2025 Vitamin D deficiency , unspecified (ICD-10 - E55.9) 12/29/2024 Vitamin D deficiency , unspecified (ICD-10 - E55.9) 10/27/2024 Vitamin D deficiency , unspecified (ICD-10 - E55.9) 09/01/2024 Proteinuria, unspecified (ICD-10 - R80.9) 09/01/2024 Small kidney, unspecified (ICD-10 - N27.9) 10/27/2024 Renal osteodystrophy (ICD-10 - N25.0) 04/30/2025 Vitamin D deficiency , unspecified (ICD-10 - E55.9) 03/30/2025 Renal osteodystrophy (ICD-10 - N25.0) 12/29/2024 Renal osteodystrophy (ICD-10 - N25.0) 12/29/2024 Edema, unspecified (ICD-10 - R60.9) 04/30/2025 Renal osteodystrophy (ICD-10 - N25.0) 03/30/2025 Edema, unspecified (ICD-10 - R60.9) 10/27/2024 Edema, unspecified (ICD-10 - R60.9) 09/01/2024 Vitamin D deficiency , unspecified (ICD-10 - E55.9) 10/27/2024 Small kidney, unspecified (ICD-10 - N27.9) 04/30/2025 Edema, unspecified (ICD-10 - R60.9) 12/29/2024 Small kidney, unspecified (ICD-10 - N27.9) 03/30/2025 Small kidney, unspecified (ICD-10 - N27.9) 12/29/2024 Proteinuria, unspecified (ICD-10 - R80.9) 03/30/2025 Proteinuria, unspecified (ICD-10 - R80.9) 04/30/2025 Small kidney, unspecified (ICD-10 - N27.9) 10/27/2024 Proteinuria, unspecified (ICD-10 - R80.9) 10/27/2024 Secondary hyperparathyroidism of renal origin (ICD-10 - N25.81) 03/30/2025 Benign prostatic hyperplasia without lower urinary tract symptoms (ICD-10 - N40.0) 04/30/2025 Proteinuria, unspecified (ICD-10 - R80.9) 12/29/2024 Elevated prostate specific antigen (PSA) (ICD-10 - R97.20) 03/30/2025 Metabolic disorder, unspecified (ICD-10 - E88.9) 12/29/2024 Benign prostatic hyperplasia without lower urinary tract symptoms (ICD-10 - N40.0) 04/30/2025 Benign prostatic hyperplasia without lower urinary tract symptoms (ICD-10 - N40.0) 10/27/2024 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
--- OUTSIDE RECORDS SUMMARY | 2025-07-04 08:16 | XMS_ITS | Encounter Summary ---
Author Organization [facility] Address [address] [place] [address] Phone Care Team Providers Care Hair Assistant Name Role Phone Lynette Bentley MD Primary Care Provider Encounter Details Date Type Department Care Team (Late st Contact Info) Description 10/20/2024 Telephone [facility] [address] [place] [phone] Cory Ortega MD [address] [place] [address] Social History Tobacco Use Types Packs/Day Years Used Date Smoking Tobacco: Never Smokeless Tobacco: Never Alcohol Use Standard Drinks/Week Comments Never 0 (1 standard drink = 0.6 oz pur e alcohol) Sex and Gender Information Value Date Recorded Sex Assigned at Not on file Legal Sex Male 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 Ortega. Patient states that the last time he saw Dr. Ortega, 12/10/2022, that he was told he didn't need to see her because his primary doctor treats the same thing. He is wanting Dr. Ortega to reach out to PCP to make him aware of this. Attempted to transfer to charge nurse, but declined and would rather me leave a note for provider. NSED FINAL EXPENSE AGENTS documented in this encounter Plan of Treatment Upcoming Encounters Date Type Department Care Team (Late st Contact Info) Description 11/19/2025 3:00 PM CDT Office Visit [facility] Services [address] [place] [address] [place] [address] [place] [address] Discharge Disposition: Discharged to home or Selfcare 11/19/2025 3:30 PM CDT Lab [facility] [address] [place] [address] [place] [address] [place] [address] Discharge Disposition: Discharged to home or Selfcare documented as of this encounter Visit Diagnoses Not on filedocumented in this encounter Care Teams Hair Assistant Relationship Specialty Start Date End Date Lynette Bentley MD [address] [place] [address] PCP - General Internal Medicine 10/17/20 documented as of this encounter
[2025-07-04 08:28] LABS: Estimated Glomerular Filt Rate 54
== END 2025-07-04 08:06 | disposition home or self-care (01) ==
PROVIDERS: Visit Provider Urology
DX: C61 Malignant neoplasm of prostate (principal)
CPT/HCPCS: 74177; 78306; A9503; Q9967

== ENCOUNTER 2025-07-24 13:03 | Outpatient (CLI) | payer MEDICARE, OTHER, SELFPAY ==
--- NOTE | ~2025-07-24 | PE_ITS ---
EXAMINATION: PET_PETPSMAST_PT DATE: 07/24/2025 15:37 INDICATION: Gastric cancer TECHNIQUE: 5.15 mCi of Illucix [id number]) was administered i.v. Low dose computed tomography (CT) images were acquired from the base of the brain to the base of the brain to the proximal thighs for attenuation correction and anatomic localization. Positron emission tomography (PET) images were acquired in the same distribution beginning 67 minutes after injection. Images including fused PET/CT images were reconstructed in axial, coronal, and sagittal planes. Automated exposure control technique was employed. The dose-length product was 1132.02mGy-cm. COMPARISON: None FINDINGS: Head/neck: Typical pattern of symmetric physiologic increased activity in the lacrimal, parotid and submandibular glands as well as along the mucosa of the nasal and oral cavities, pharynx and hypopharynx. No pathologically enlarged cervical lymphadenopathy or suspicious foci of increased uptake in the visualized head or neck. Chest: Mild bibasilar atelectasis. No suspicious pulmonary nodules, pneumonia, pulmonary edema or pleural effusion. Mild cardiomegaly. Sclerotic coronary artery calcification. No pericardial effusion. Thoracic aorta is normal in caliber. Calcified subcarinal lymph nodes consistent with old granulomatous disease. No pathologically enlarged or PSMA avid thoracic lymphadenopathy. Abdomen/pelvis/proximal thighs: Physiologic renal accumulation and excretion of activity in the kidneys, bladder and along portions of ureters. Prostatomegaly measuring 5.1 x 3.8 cm. There is a focus of increased uptake at the left superior aspect of the prostate with maximal SUV of 15.5 consistent with primary prostate cancer. The uptake appears to extend towards the base of the left seminal vesicle and could not exclude extraprostatic extension. Normal degree and slightly heterogenous pattern of increased uptake throughout the liver and spleen without radiologic correlate or dominant PSMA avid lesion. Small calcified gallstones in the dependent aspect of the normal gallbladder. The pancreas and bilateral adrenal glands are normal. Moderate uptake scattered throughout the bowels with typical duodenal and proximal jejunal predominance and without radiologic correlate, also likely physiologic. There are several bilateral enlarged inguinal lymph nodes the largest on the left and the largest on the right all measuring 1.7 cm in maximal short axis diameter. There is only minimal activity associated with the lymph nodes with maximal SUV of 4.1 on the right and 3.9 on the left which given the degree of uptake in the prostate and the size of the lymph nodes suggests this is unlikely to represent metastatic disease or more likely reactive. No other abnormal foci of increased uptake or pathologically enlarged lymphadenopathy in the abdomen, pelvis or proximal thighs. 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 Lower thoracic dextroscoliosis with moderate to severe spondylosis. No suspicious lytic, blastic or abnormally PSA may avid bone lesions. No suspicious lytic, blastic or abnormally PSMA avid bone lesions. IMPRESSION: 1. Small region of increased activity at the left superior prostate which appears to extend towards the left seminal vesicle consistent with primary prostate cancer potentially beginning to invade the left seminal vesicle. 2. Bilateral inguinal lymphadenopathy is measuring up to 1.7 similar on both the left and right but with relatively minimal asymmetric activity significantly less than would be expected given the degree of activity in the prostate and the size of the lymph nodes and these are more likely reactive. No other distant avid lesions suspicious for metastatic disease in the neck, chest, abdomen or pelvis. Line 3. Cholelithiasis. Reviewed, dictated and finalized at location A. [employer] [facility] IMPRESSION: 1. Small region of increased activity at the left superior prostate which appea rs to extend towards the left seminal vesicle consistent with primary prostate cancer potentially beginning to invade the left seminal vesicle. 2. Bilateral inguinal lymphadenopathy is measuring up to 1.7 similar on both th e left and right but with relatively minimal asymmetric activity significantly less than would be expected given the degree of activity in the prostate and th e size of the lymph nodes and these are more likely reactive. No other distant avid lesions suspicious for metastatic disease in the neck, chest, abdomen or p charles. Line 3. Cholelithiasis.
--- OUTSIDE RECORDS SUMMARY | 2025-07-24 14:01 | XMS_ITS | Clinical Summary ---
Author Organization [facility] Address [address] [place] [address] Phone Care Team Providers Care Vp Analytics Name Role Phone Lynette Bentley MD Primary [...] WEEK NEEDED 2 Active ergocalciferol (VITAMIN D) 74230 UNIT Capsule once a week. 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 Gender Identity Not on file Sexual Orientation [...] Description 11/19/2025 3:00 PM CDT Office Visit [facility] On[facility] Services [address] [place] [phone] Cory Ortega MD [address] [place] [address] Discharge Disposition: Discharged to home or Selfcare 11/19/2025 3:30 PM CDT Lab [facility] [address] [place] [phone] Cory Ortega MD [address] [place] [address] Discharge Disposition: Discharged to home or Selfcare [...] ORDERABLES Final Resul t Performing Organization Address [facility] de Phone Number SCAN * THYROXINE (T4) FREE (05/07/2025 12:00 AM CDT) 05/07/2025 us Provider Scan CHEMISTRY ORDERABLES Final Resul t Performing Organization Address [facility] de Phone Number SCAN * THYROID STIMULATING HORMONE (TSH) (05/07/2025 12:00 AM CDT) 05/07/2025 us Provider Scan CHEMISTRY ORDERABLES Final Resul t Performing Organization Address [facility] de Phone Number SCAN * LIPID PANEL (05/07/2025 12:00 AM CDT) CHOLESTEROL 177 SCAN HDL CHOLESTEROL 44 SCAN LDL 116 SCAN 05/07/2025 us Provider Scan CHEMISTRY ORDERABLES Final Resul t Performing Organization Address [facility] de Phone Number SCAN * FOLIC ACID (FOLATE) (05/07/2025 12:00 AM CDT) 05/07/2025 us Provider Scan CHEMISTRY ORDERABLES Final Resul t Performing Organization Address [facility] de Phone Number SCAN * CMP (COMPREHENSIVE METABOLIC PANEL) (05/07/2025 12:00 AM CDT) 05/07/2025 us Provider Scan CHEMISTRY ORDERABLES Final Resul t Performing Organization Address [facility] de Phone Number SCAN * COMPLETE BLOOD COUNT (CBC) WITH DIFF (05/07/2025 12:00 AM CDT) 05/07/2025 us Provider Scan HEMATOLOGY ORDERABLES Final Resu lt SCAN from Last 3 Months Insurance MEDICARE C [employer] Care Teams Vp Analytics Relationship Specialty Start Date End Date Lynette Bentley MD [address] [place], [place] [id number] PCP - General Internal Medicine 10/17/20
--- OUTSIDE RECORDS SUMMARY | 2025-07-24 14:01 | XMS_ITS | Continuity of Care Document ---
Author Organization [place] - [facility], [facility] Internal Med [address] [facility] [place] [address] Care Team Providers Care Electric Relay Tester Name Role Phone LYNETTE BENTLEY Primary Care Provider JODY BURNHAM Service Dispatcher JEANETTE JIANG Hand Turner [phone] Assessment Encounter Date Assessment Date Assessment LastModified by Organization Details LastModified Time 05/17/2025 05/17/2025 10/31/2020: TSH/FT4: WNL Chol 145, TG 98, HDL 39, LDL 86 CMP: WNL CBC: H/H 12.6/39.2 11/04/2021: PSA: 2.48 TSH/FT4 WNL Chol 165, TG 75, HDL 49, LDL 101 CMP/CBC: WNL 05/07/2022: Dr Ortega Iron 62 CBC: HGB 13.0 09/30/2022: TSH/FT4: WNL LDL 141 CMP: Cr 1.26, GFR 56 CBC: HGB 12.8 11/30/2022: PSA 2.59 03/16/2023: HGB 12.7 06/14/2023: Gluc 103, GFR 56, Cr 1.26 Chol 218, LDL 151 10/14/2023: HGB 12.8 01/26/2024: B12 238L FT4 2.26H, TSH WNL GFR 58 HTGB 12.7L 06/30/2024: B12/folate: Neg 10/11/2024: LDL 122 WBC 4.0, HGB 12.9 01/08/2025: H/H 11.8/36.8, PLT 136 05/07/2025: LDL 116 HGB 12.9 10/31/2020: TSH/FT4: WNL Chol 145, TG 98, HDL 39, LDL 86 CMP: WNL CBC: H/H 12.6/39.2 11/04/2021: PSA: 2.48 TSH/FT4 WNL Chol 165, TG 75, HDL 49, LDL 101 CMP/CBC: WNL 05/07/2022: Dr Ortega Iron 62 CBC: HGB 13.0 09/30/2022: TSH/FT4: WNL LDL 141 CMP: Cr 1.26, GFR 56 CBC: HGB 12.8 11/30/2022: PSA 2.59 03/16/2023: HGB 12.7 06/14/2023: Gluc 103, GFR 56, Cr 1.26 Chol 218, LDL 151 10/14/2023: HGB 12.8 01/26/2024: B12 238L FT4 2.26H, TSH WNL GFR 58 HTGB 12.7L 06/30/2024: B12/folate: Neg 10/11/2024: LDL 122 WBC 4.0, HGB 12.9 01/08/2025: H/H 11.8/36.8, PLT 136 05/07/2025: LDL 116 HGB 12.9 [email or web address] Not available 05/17/2025 15:16:25 Plan of Treatment Reminders Order Date Submit Date Provider Last Modified By Organization Details Last Modified Time Details Appointments Any 15 2025 01:45P Del rowley MD Not available Not available Not available Lab vitamin B12 + folate, serum or blood 2024 025 [facility] (Lab), [address] [place], [address], 05/17/2025 17:20:47 lipid panel, serum 2024 025 [facility] (Lab), [address] [place], [address], 05/17/2025 17:20:47 CMP, serum or plasma 2024 025 [facility] (Lab), [address] [place], [address], 05/17/2025 17:20:47 TSH, serum or plasma 2024 025 [facility] (Lab), [address] [place], [address], 05/17/2025 17:20:47 CBC w/ auto diff 2024 025 [facility] (Lab), [address] [place], [address], 05/17/2025 17:20:47 T4, free, serum 2024 [facility] (Lab), [address] [place], [address], 05/17/2025 17:20:47 Referral vascular surgeon referral - Please call patient to schedule an appointme nt. Thank you. 2024 025 [place], [address], [facility] [place] [address], [place], [address], 05/18/2025 10:50:31 endocrino logy referral - Please call patient to schedule an appointme nt. Thank you. 2024 025 [place], [address], [place], [address], 05/18/2025 10:45:25 nephrolog ist referral - Please call patient to schedule an appointme nt. Thank you. 2024 025 FRANCE Burnham MD (Nephrology, [address], [address], [place], [address], 05/18/2025 10:40:30 cardiolog ist referral - Please call patient to schedule an appointme nt. Thank you. 2024 025 [place], [address] [facility], [address], [address], 05/18/2025 10:45:25 hematolog ist referral - Please call patient to schedule an appointme nt. Thank you. 2024 025 FRANCE Cory [facility], [address] [place], [address], 05/18/2025 10:45:26 Procedures None recorded. Surgeries None recorded. Imaging None recorded. Medication Orders atorvasta tin 40 mg tablet [email or web address] [place] [address] [address], [address] [place] [address], [address], 05/17/2025 15:47:47 Patient TargetsNo targets recorded. Patient InstructionsNo instructions recorded. Reason for Referral Vascular Surgeon Referral fo r Peripheral vascular disease Please call patient to schedule an appointment. Thank you. Referring Physician: Lynette Bentley Internal Medicine, Encounter Date: 05/17/2025 Capacity Management Specialist Referral for Es sential hypertension Please call patient to schedule an appointment. Thank you. Referring Physician: Lynette Bentley Internal Medicine, Encounter Date: 05/17/2025 Service Dispatcher Referral for Ch ronic kidney disease Please call patient to schedule an appointment. Thank you. Referring Physician: Lynette Bentley Internal Medicine, Encounter Date: 05/17/2025 Utilization Engineer Referral for An emia Please call patient to schedule an appointment. Thank you. Referring Physician: Lynette Bentley Internal Medicine, Encounter Date: 05/17/2025 Endocrinology Referral for H yperthyroidism Please call patient to schedule an appointment. Thank you. Referring Physician: Lynette Bentley Internal Medicine, Encounter Date: 05/17/2025 Problems Name Problem SNOMED Code Status Onset Date Resolution Date Notes Provider Name and Address Organization Details Recorded Time Deep venous thrombosis 836672290 Active Not Available [facility] 3 07:30:41 Peripheral vascular disease 633198607 Active Lynette birch MD [address], [address], [place], [address] , [employer] 5 13:07:06 Essential hypertensi on 81713579 Active Lynette birch MD [address], [address], [place], [address] , [employer] 5 15:17:26 Erectile dysfunctio n 748278389 Active Not Available [facility] 3 07:30:41 Bilateral cataracts 81018584 Active Lynette birch MD [address], [address], [place], [address] , [employer] 5 13:07:06 Onychomyco sis 473519037 Active 2020 Lynette birch MD [address], [address], [place], [address] , [facility] 5 13:07:06 Pain of right knee joint 6959662589783 00 Active 2021 Lynette birch MD [address], [address], [place], [address] , [employer] 5 13:07:07 Pain of left knee joint 6422127151224 07 Active 2021 Not Available [facility] 3 07:30:41 Vitamin D deficiency 54871694 Active 2021 Not Available [facility] 3 07:30:41 Hyperlipid emia 29384714 Active 2021 Lynette birch MD [address], [address], [place], [address] , [employer] [facility] 5 15:17:26 Chronic kidney disease 048744884 Active 2022 Lynette birch MD [address], [address], [place], [address] , [facility] 5 15:17:26 Deep venous thrombosis of lower extremity 522722155 Active 2022 Lynette birch MD [address], [address], [place], [address] , [facility] 5 13:07:06 Primary erectile dysfunctio n 029584248 Active 2022 Lynette birch MD [address], [address], [place], [address] , [facility] [employer] [facility] 5 15:38:05 Anemia 367898638 Active 2022 Lynette birch MD [address], [address], [place], [address] , [facility] [employer] [facility] 5 13:07:07 Disorder of prostate 90853009 Active 2022 Not Available [facility] 3 07:30:41 Urinary incontinen ce 147784603 Active 2022 Lynette birch MD [address], [address], [place], [address] , [facility] [employer] [facility] 5 13:07:07 Hyperthyro idism 08128105 Active 2023 Lynette birch MD [address], [address], [place], [address] , [facility] 5 13:07:07 Serum vitamin B12 below reference range 084461983 Active 2023 Lynette birch MD [address], [address], [place], [address] , [facility] [employer] [facility] 5 13:07:07 Cobalamin deficiency 683422373 Active 2023 Colleen Diaz MA null, [facility] [email or web address] [facility] 4 18:30:58 Problem Notes None recorded. Procedures Surgical History Date Name Laterality Status Provider Name and Address Organization Details Recorded Time 06/22/20 Medicare Wellness CPT Code, subsequent completed Ilana Shipman RN [facility] [email or web address] [facility] 06/22/2023 14:50:39 Tonsillectomy completed Not Available [facility] 10/21/2022 00:42:26 Imaging Results None recorded. Procedure Notes None recorded. Medical Equipment None Reported. Allergies No known drug allergies Medications Name Sig Start Date Stop Date Status Note LastModified by Organization Details LastModified Time losartan 50 mg tablet TAKE 1 TABLET BY MOUTH EVERY DAY 10/25 completed increase d to 100mg by cardio Not Available Not Available Not Available furosemid e 40 mg tablet TAKE 1 TABLET BY MOUTH EVERY DAY 06/22 completed Not Available Not Available Not Available atorvasta tin 40 mg tablet TAKE 1 TABLET BY MOUTH ONCE DAILY active Not Available Not Available No t Available atorvasta tin 20 mg tablet TAKE 1 TABLET BY MOUTH DAILY 10/22 completed Not Available Not Available Not Available bumetanid e 2 mg tablet TAKE 1 TABLET BY MOUTH EVERY DAY 05/17 completed Not Available Not Available Not Available Iron (ferrous sulfate) 325 mg (65 mg iron) tablet Take 1 tablet every day by oral route. active Not Available Not Available No t Available lisinopri l 20 mg tablet TAKE 1 TABLET BY MOUTH EVERY DAY 03/16 completed Not Available Not Available Not Available tamsulosi n 0.4 mg capsule TAKE 1 CAPSULE BY MOUTH DAILY AT BEDTIME 05/17 completed Not Available Not Available Not Available cyanocoba aditi (vit B-12) 1,000 mcg/mL injection solution inject 1 ml intramus cular once a week for 4 weeks and then once a month for 3 months 10/19 completed Not Available Not Available Not Available lisinopri l 10 mg tablet Take 1 tablet every day by oral route. 10/22 completed Not Available Not Available Not Available magnesium 250 mg tablet Take 1 tablet every day by oral route. 11/06 completed Not Available Not Available Not Available ergocalci ferol (vitamin D2) 1,250 mcg (50,000 unit) capsule TAKE 1 CAPSULE BY MOUTH 2 TIMES A WEEK active Not Available Not Available No t Available losartan 100 mg tablet TAKE 1 TABLET BY MOUTH EVERY DAY active Not Available Not Available No t Available calcitrio l 0.25 mcg capsule TAKE 1 CAPSULE BY MOUTH EVERY DAY active Not Available Not Available No t Available finasteri de 5 mg tablet TAKE 1 TABLET BY MOUTH DAILY 05/17 completed Not Available Not Available Not Available magnesium 250 mg (as magnesium oxide) tablet Take 1 tablet every day by oral route. 01/17 completed Not Available Not Available Not Available Flexeril 5 mg tablet Take 1 tablet every 8 hours by oral route as needed. 09/26 completed Patient states that he is NOT taking this on his OV 09/26/19 21 Not Available Not Available Not Available tadalafil 5 mg tablet TAKE 1 TABLET BY MOUTH ONCE PER WEEK 30 MINUTES BEFORE SEX. 02/27 completed Not Available Not Available Not Available tadalafil 20 mg tablet TAKE 1 TABLET BY MOUTH EVERY OTHER DAY NEEDED active Not Available Not Available No t Available Tylenol 1 PO BID PRN 02/27 completed Not Available Not Available Not Available peg 3350-elec trolytes 236 gram-22.7 4 gram-6.74 gram-5.86 gram solution DIRECTED 04/01 completed Not Available Not Available Not Available Xarelto 20 mg tablet TAKE ONE TABLET BY MOUTH DAILY NO DRIVING, ALCOHOL, OR OTHER SEDATING MEDICATI ONS 02/27 completed Not Available Not Available Not Available Eliquis 5 mg tablet Take 1 tablet twice a day by oral route. 02/27 completed Not Available Not Available Not Available Blue-Emu Lidocaine Patch 1 patch in AM 12/11 completed Not Available Not Available Not Available Vitals Date Recorded Body height Body mass index (BMI) Body weight Body temperature Pain severity - 0-10 verbal numeric rating [Score] - Reported Heart rate Oxygen saturation Systolic And Diastolic Provider Name and Address Organization Details Last Updated DateTime 167.64 cm 34.2 kg/m2 84335.5 8 g 97.8 [degF] 0 83 /min 95 % 120/70 mm[Hg] Rosie Mcarthur MA [place] [facility] [place] [employer] 5 14:46:21 Social History Question Answer Notes LastModified by Organizat ion Details LastModified Time Tobacco Smoking Status Never Smoker Not Available [facility] 10/21/2022 00:40:27 Do You Have An Advance Directive? Yes MIGRATION.[id number] 22173 Information not available 10/21/2022 Are You Blind Or Do You Have Difficulty Seeing? No MIGRATION.03406 93703 Information not available 10/21/2022 What Is Your Level Of Caffeine Consumption? None MIGRATION.85826 86037 Information not available 10/21/2022 How Much Tobacco Do You Chew? None MIGRATION.85603 52709 Information not available 10/21/2022 In The 14 Days Before Symptom Onset, Have You Had Close Contact With A Laboratory-confi rmed COVID-19 While That Case Was Ill? No MIGRATION.94969 95526 Information not available 10/21/2022 In The 14 Days Before Symptom Onset, Have You Had Close Contact With A Person Who Is Under Investigation For COVID-19 While That Person Was Ill? No MIGRATION.11822 67829 Information not available 10/21/2022 Are You Deaf Or Do You Have Serious Difficulty Hearing? No MIGRATION.82757 15208 Information not available 10/21/2022 What Type Of Diet Are You Following? REGULAR MIGRATION.29339 94799 Information not available 10/21/2022 Which Illicit Or Recreational Drugs Have You Used? None MIGRATION.75997 45580 Information not available 10/21/2022 What Is The Highest Grade Or Level Of School You Have Completed Or The Highest Degree You Have Received? QS14564-1 MIGRATION.04832 41689 Information not available 10/21/2022 Have There Been Any Changes To Your Family Or Social Situation? No MIGRATION.12889 41309 Information not available 10/21/2022 What Is The Fluoride Status Of Your Home? Unknown MIGRATION.10741 11749 Information not available 10/21/2022 Are There Any Guns Present In Your Home? No MIGRATION.44331 01705 Information not available 10/21/2022 Do You Use Insect Repellent Routinely? No MIGRATION.11359 96812 Information not available 10/21/2022 Where Do You Live? [place] MIGRATION.04008 88257 Information not available 10/21/2022 Guns Present In The Home? No [email or web address] Information not available 06/22/2023 Are You Able To Care For Yourself? Yes [email or web address] Information not available 06/22/2023 Are You Blind Or Do Yo Have Difficulty Seeing? No [email or web address] Information not available 06/22/2023 Are You Deaf Or Do You Have Serious Difficulty Hearing? No Information not available 06/22/2023 Live Alone Of With Others? With Others [email or web address] Information not available 06/22/2023 Do You Have A Medical Power Of Baker Helper? Yes MIGRATION.11338 94678 Information not available 10/21/2022 What Was The Date Of Your Most Recent Tobacco Screening? 05/17/2025 Information not available 05/17/2025 Do You Have Any Pets? No MIGRATION.90679 84257 Information not available 10/21/2022 What Is Your Relationship Status? MIGRATION.21772 63519 Information not available 10/21/2022 Do You Use Your Seat Belt Or Car Seat Routinely? Yes MIGRATION.11732 97189 Information not available 10/21/2022 Do You Have Smoke And Carbon Monoxide Detectors In Your Home? Yes MIGRATION.05161 39473 Information not available 10/21/2022 Are You Passively Exposed To Smoke? No MIGRATION.64088 74431 Information not available 10/21/2022 Are There Any Smokers In Your House? No MIGRATION.16259 56284 Information not available 10/21/2022 How Much Tobacco Do You Smoke? No MIGRATION.95297 68452 Information not available 10/21/2022 Do You Use Sunscreen Routinely? No MIGRATION.26881 41389 Information not available 10/21/2022 Has Tobacco Cessation Counseling Been Provided? No N/a MIGRATION.12556 96949 Information not available 10/21/2022 Have You Recently Traveled Abroad? No MIGRATION.03472 58553 Information not available 10/21/2022 Do You Have Difficulty Walking Or Climbing Stairs? Yes Uses A Cane [email or web address] Information not available 06/22/2023 Do You Have Any Dietary Restrictions? No MIGRATION.74321 79301 Information not available 10/21/2022 Sex: Male Functional Status Question Answer Note LastModified by Organizat ion Details LastModified Time Do you or have you ever used smokeless tobacco? Never used smokeless tobacco MIGRATION.565893 0685 Information not available 10/21/2022 Are you currently employed? No Information not available 01/18/2025 Do you have transportation difficulties? No MIGRATION.152155 0333 Information not available 10/21/2022 Are you able to care for yourself independently? Yes MIGRATION.225044 2016 Information not available 10/21/2022 Do you have difficulty dressing, bathing, grooming, or toileting? No MIGRATION.454684 2119 Information not available 10/21/2022 Do you or have you ever used e-cigarettes or vape? Never used electronic cigarettes MIGRATION.304978 2207 Information not available 10/21/2022 What is your exercise level? Occasional [email or web address] Information not available 06/22/2023 Do you use any illicit or recreational drugs? No MIGRATION.122269 4274 Information not available 10/21/2022 Do you or have you ever used any other forms of tobacco or nicotine? No MIGRATION.531683 9295 Information not available 10/21/2022 What is your level of alcohol consumption? None MIGRATION.022345 1325 Information not available 10/21/2022 Are you able to walk independently without assistance or assistive devices? YESWOREST MIGRATION.915051 4814 Information not available 10/21/2022 Do you have difficulty doing errands alone? No MIGRATION.078125 9841 Information not available 10/21/2022 What is your occupation? retired MIGRATION.261989 4013 Information not available 10/21/2022 Mental Status Question Answer Note LastModified by Organizat ion Details LastModified Time Do you feel stressed (tense, restless, nervous, or anxious, or unable to sleep at night)? MT3246-4 MIGRATION.25112880 26 Information not available 10/21/2022 Do you have difficulty concentrating, remembering or making decisions? No MIGRATION.21111636 26 Information not available 10/21/2022 Family History Relationship Description Onset Age of this Age Resolved Age Notes LastModified by Organization Details LastModified Time Father No current problems or disability MIGRATION.905 [id number] Not available 10/21/2022 00:42:27 Mother No current problems or disability MIGRATION.937 [id number] Not available 10/21/2022 00:42:28 Medical History Condition Response NERVE DISEASE N BLINDNESS N RHEUMATIC FEVER N KIDNEY STONES N BLADDER PROBLEMS N MRSA N CARPAL TUNNEL SYNDROME N OTHER # 1 N POLIO N LUNG DISEASE/DISORDER N HISTORY OF DRUG ABUSE N RADIATION / CHEMOTHERAPY N COPD N Other # 2 N SPORTS INJURY N ANKLE PAIN N BLOOD DISEASES N EAR OR HEARING PROBLEMS N MUMPS N SCHIZOPHRENIA N SHINGLES N SHOULDER PAIN N DEPRESSION (INCLUDING POST ) N BOWEL PROBLEMS N STROKE/TIA N ULCERS N KNEE PAIN N BENIGN PROSTATIC HYPERPLASIA N MEASLES N HYPOTENSION N MYOCARDIAL INFARCTION N OBESITY N GERD/NAUSEA N ANEURYSM N URINARY/BLADDER/KIDNEY PROBLEMS N CORONARY ARTERY DISEASE (CAD) N ADDICTION CONCERNS N Impotence N ENDOMETRIOSIS N USE OF BLOOD THINNERS N SKIN PROBLEMS N EMPHYSEMA N GASTROINTESTINAL DISORDER N PERIPHERAL VASCULAR DISEASE Y MUSCLE,JOINT OR BONE PROBLEMS N DVT N STOMACH ULCERS N GASTROINTESTINAL BLEEDING N BLOOD CLOTS Y ASTHMA N CATARACTS Y USE OF NSAIDS N CONCUSSION OR SPINAL TRAUMA N ERECTILE DYSFUNCTION N VARICOSITIES N GI PROBLEMS N Low Testosterone N NEUROPATHY N INFERTILITY N AIDS/HIV N FRACTURES N CHEMOTHERAPY / RADIATION N LIVER DISEASE N MALE HYPOGONADISM N HYPERTENSION Y ELBOW PAIN N Deficiency N TOURETTE'S N Metal allergy N ANXIETY DISORDER N BLOOD TRANSFUSION N ANEMIA/BLOOD DISORDER Y CHRONIC EAR INFECTIONS N BIPOLAR DISORDER N BRONCHITIS N OSTEOARTHRITIS N TUBERCULOSIS N GLAUCOMA N FOOT PROBLEM N HEART VALVE DISORDERS N DIVERTICULITIS N SLEEP APNEA N CHICKENPOX N SOFT TISSUE INJURY N ALLERGIES/HAYFEVER N INFECTIOUS DISEASE N PROSTATE N HEART ARRHYTHMIA N INSOMNIA N RHEUMATOID ARTHRITIS N HIGH CHOLESTEROL / HYPERLIPIDEMIA Y EYE PROBLEMS N HYPERTHYROIDISM N EDEMA N CHRONIC PAIN SYNDROME N HYPOTHYROIDISM N CAROTID BLOCKAGE N CONSTIPATION N BACK / NECK PROBLEMS N ATHEROSCLEROSIS N BURSITIS N BREAST PROBLEMS N HERNIATED DISC N DIALYSIS N ECZEMA N FIBROMYALGIA N OSTEOPOROSIS N ARTHRITIS N PERIPHERAL NEUROPATHY N APPENDICITIS N DIABETES, TYPE N BAD TEETH N ENT N HEARTBURN / REFLUX N AUTISM SPECTRUM DISORDER (ASD) N HEPATITIS / LIVER DISEASE N GOUT N SLEEP DISORDER N ALZHEIMER'S DISEASE N Brain Problems N DEMENTIA N HERPES N SEIZURES/EPILEPSY N HEADACHES/MIGRAINES N VASCULAR DISEASE N PACEMAKER N Blood Disorder N HIP PAIN N DIZZINESS N HEAD TRAUMA OR INJURY N KIDNEY DISEASE N HEART DISEASE/HEART PROBLEMS N MULTIPLE SCLEROSIS N CANCER: SPECIFY N CARDIAC ARRHYTHMIA N ANESTHESIA COMPLICATIONS N ATRIAL FIBRILLATION N Gall Stones N PULMONARY EMBOLISM N AUTOIMMUNE DISEASE N Past Encounters Encounter ID Performer Location Encounter Start Date Encounter Closed Date Diagnosis/Indication Diagnosis SNOMED-CT Code Diagnosis ICD10 Code Diagnosis IMO Codes Diagnosis Note [id number] Lynette birch MD [facility] Internal Med [facility] [place] [address] [facility] [place] [address] 05/17/2025 14:09:57 05/17/2025 15:38:16 Screening - NAD 896116207 Z13.9 C-scope: 03/31/2021 : Dr Jiang next in 10 yearsGet yearly flu shotGet Tdap if not doneGet PCV #13 and then #23Get shingles vaccineGet COVID 19 vaccineHe refuses all vaccines 09/26/2020 , 02/27/2021 , 07/03/2021 , 10/22/2022 , 06/22/2023 On 10/26/2023 states that he will not get 'any shots'RTC in 4 monthsDo labsER if worseHe did verbalize his understand ing of the above Essential hypertension 83777450 I10 Off lisinopril 10mg daily, should not take this as he is on losartan! 03/16/2023 On losartan 50mg dailyNot on lasix 40mg dailyNot on bumex 2mg daily Get labs [facility] Dr Hilario 11/13/2021 , next in 6 months ECHO 06/17/2023 : [facility] Deep venou s thrombosis of lower extremity 729468013 I82.409 On xarelto 20mg daily, wants to get off this, DVT on the L leg in 06/2020 as per [facility] note and the US LE was negative in 10/11/2020 , can d/c the xarelto Dr Hilario [facility] Bilateral cataracts 9572 2003 H26.[address] Green on 12/06/2020 , declined then and today to do cataract surgery, next f/u in one yearHe understand s the risks for untreated cataractsD oes not want any more referrals, understand s the risks! Onychomycosis 313108623 B35.[address] Rinaldi 11/08/2020 and did not want to get any treatment and f/u was PRN He understand s the risks for untreated nail fungus Peripheral vascular disease 430367784 I73.9 S/p US 10/15/[address] [facility] [address] Hilario 11/13/2021 , f/u in 6 months Hyperlipidemia 45565784 E78.5 On atorvastat in 40mg daily, more diet and exercise is neededStat es that he did not take this as he 'ran out', renewed today 05/17/2025 Get labs Primary er ectile dysfunction 304503249 N52.9 On tadalafil 20mg as needed, given by Dr Forde urology Pain of ri ght knee joint 4696445280 17182 M25.561 12/11/2021 : Ortho, Amadeo URBINA, pain was from the hip, refused surgery, f/u as needed Anemia 864069321 D64.[address] Ortega on 12/10/2022 On iron Chronic ki dney disease 541302130 N18.9 [address]Dr Carmelo IJNot on bumex 2mg dailyOn calcitriol On vit d weekly Urinary incontinence 165 609586 R32 On flomax 0.4mg daily Hyperthyroidism 93463063 E05.90 US thyroid 02/18/2024 : Next in one yearRefer to endocrine Serum daniel min B12 below reference range [id number] R79.89 Should get B12 weekly and then monthly and repeat the labs in 3 months OV 07/13/2024 :B12 832 06/30/2024 , no need for more B12, can do OTC [facility] Concerns Section Related Observation LastModified by Organization Detai ls LastModified Time None Recorded Concern Status LastModified by Organization Details LastModified Time None Recorded Payers Encounter Date Sequence Insurance Name Policy Number Policy Prieto Covered Member ID Prieto Member ID Guarantor Name 05/17/2025 1 [employer] - [employer]IME (MEDICARE REPLACEMENT /ADVANTAGE - HMO) [id number] Matt Shelton [id number] Matt Shelton 05/17/2025 2 [employer] (POS II) [id number] Matt Shelton [id number] Matt Shelton Notes Date Note Type Note Provider Name and Address Organization Details Recorded Time 05/17/2025 text/html OV 09/26/2020:Here establish carePast Hx:HTNDVTReviewed social family and surgical historyHere as he has been in a rehab facility since he was diagnosed with a DVT and has been home on eliquis since about 2 weeksHe states that post DVT he could not put weight on the leg and so had to go to the rehab facility, he was apparently sent there from the hospital OV 10/24/2020:Here for his routine aptHe states that he is doing wellHe did do the labsHe also has seen Dr Guerrero would like something cheaper than eliquJarad also would like to get cialisOV 02/27/2021:Here for his 4 month aptHe is doing wellHe did see podiatry and eye MDHe did also see GI Dr Pope 07/03/2021:Here for his routine aptHe is doing wellHe has no new labs yetC/o R knee pain, states in the past he has had 'fluid' in the kneeOV 11/06/2021:Here for his routine aptHe is doing wellHe did the labs on 2OV 05/07/2022:Here for his f/u apt, he is doing well, he is here for his MWV also,no new labs OV 10/21/2022:Here for his f/u apt, he feels well OV 06/22/2023: Here for his routine f/u apt, he is doing well today, he is here for his MWV also OV 10/26/2023: Here for his f/u apt, he is doing well today, he did do the labs, he states that he is consuming more iron, he also would like his ED pill refilled OV 03/09/2024: Here for his f/u apt, he feels well today, he did do the labs on 01/26/2024 OV 07/13/2024: Here for his routine apt, he is doing well today, he would like his chol med refilled as well his tadalafil OV 10/19/2024: Here for his f/u apt, he feels well today, he would like to get tadalafil and also his chol med, wants only 30 days at a time for his chol med OV 01/18/2025: Here for his f/u apt, he is doing well today, does want his tadalafil refilled, did do the labs are [facility] OV 05/17/2025: Here for his f/u apt, he feels well, he does want his refill on the chol medicine Lynette Bentley MD [address] [place] [address], [facility], [address], [place], [address], [facility] [place] 05/17/2025 15:51:17
--- OUTSIDE RECORDS SUMMARY | 2025-07-24 14:01 | XMS_ITS | Encounter Summary ---
Author Organization [facility] Address [address] [place] [address] Phone Care Team Providers Care Mandrel Cleaner Name Role Phone Lynette Bentley MD Primary Care Provider Encounter Details Date Type Department Care Team (Late st Contact Info) Description 10/20/2024 Telephone [facility] [address] [place] [id number] Cory Ortega MD [address] [place] [address] Social History Tobacco Use Types Packs/Day Years Used Date Smoking Tobacco: Never Smokeless Tobacco: Never Alcohol Use Standard Drinks/Week Comments Never 0 (1 standard drink = 0.6 oz pur e alcohol) Sex and Gender Information Value Date Recorded Sex Assigned at Not on file Legal Sex Male 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 SPORTATION SUPERVISOR documented in this encounter Plan of Treatment Upcoming Encounters Date Type Department Care Team (Late st Contact Info) Description 11/19/2025 3:00 PM CDT Office Visit [facility] On[facility] [address] [place] [address] [place] [address] [place] [id number] Discharge Disposition: Discharged to home or Selfcare 11/19/2025 3:30 PM CDT Lab [facility] [address] [place] [address] [place] [address] [place] [id number] Discharge Disposition: Discharged to home or Selfcare documented as of this encounter Visit Diagnoses Not on filedocumented in this encounter Care Teams Mandrel Cleaner Relationship Specialty Start Date End Date Lynette Bentley MD [address] [place] [address] PCP - General Internal Medicine 10/17/20 documented as of this encounter
--- OUTSIDE RECORDS SUMMARY | 2025-07-24 14:01 | XMS_ITS | Data Portability ---
Author Organization [employer], Main Office Address [address] [place] [address] Care Team Providers Care [employer] Footballs Reverser Name Role Phone LYNETTE BENTLEY Primary Care Provider BLAKE BURNHAM Corncob Pipe Supervisor JEANETTE JIANG Police Shift Commander Assessment Encounter Date Assessment Date Assessment LastModified by Organization Details LastModified Time 03/09/2024 03/09/2024 10/31/2020: TSH/FT4: WNL Chol 145, TG 98, [...] 2.26H, TSH WNL GFR 58 HTGB 12.7L Not available 03/09/2024 15:07:07 07/13/2024 07/13/2024 10/31/2020: TSH/FT4: WNL Chol 145, TG 98, HDL 39, LDL 86 CMP: WNL CBC: H/H 12.6/39.2 11/04/2021: PSA: 2.48 TSH/FT4 WNL Chol 165, TG 75, HDL 49, LDL 101 CMP/CBC: WNL 05/07/2022: Dr Shannon Herman CBC: HGB 13.0 09/30/2022: TSH/FT4: WNL LDL 141 CMP: Cr 1.26, GFR 56 CBC: HGB 12.8 11/30/2022: PSA 2.59 03/16/2023: HGB 12.7 06/14/2023: Gluc 103, GFR 56, Cr 1.26 Chol 218, LDL 151 10/14/2023: HGB 12.8 01/26/2024: B12 238L FT4 2.26H, TSH WNL GFR 58 HTGB 12.7L 06/30/2024: B12/folate: [email or web address] Not [facility] 07/13/2024 14:47:38 10/19/2024 10/19/2024 10/31/2020: TSH/FT4: WNL Chol 145, TG 98, HDL 39, LDL 86 CMP: WNL CBC: H/H 12.6/39.2 11/04/2021: PSA: 2.48 TSH/FT4 WNL Chol 165, TG 75, HDL 49, LDL 101 CMP/CBC: WNL 05/07/2022: Dr Shannon Herman CBC: HGB 13.0 09/30/2022: TSH/FT4: WNL LDL 141 CMP: Cr 1.26, GFR 56 CBC: HGB 12.8 11/30/2022: PSA 2.59 03/16/2023: HGB 12.7 06/14/2023: Gluc 103, GFR 56, Cr 1.26 Chol 218, LDL 151 10/14/2023: HGB 12.8 01/26/2024: B12 238L FT4 2.26H, TSH WNL GFR 58 HTGB 12.7L 06/30/2024: B12/folate: Neg 10/11/2024: LDL 122 WBC 4.0, HGB 12.9 Not available 10/19/2024 15:16:46 01/18/2025 01/18/2025 10/31/2020: TSH/FT4: WNL Chol 145, TG 98, HDL 39, LDL 86 CMP: WNL CBC: H/H 12.6/39.2 11/04/2021: PSA: 2.48 TSH/FT4 WNL Chol 165, TG 75, HDL 49, LDL 101 CMP/CBC: WNL 05/07/2022: Dr Shannon Herman CBC: HGB 13.0 09/30/2022: TSH/FT4: WNL LDL 141 CMP: Cr 1.26, GFR 56 CBC: HGB 12.8 11/30/2022: PSA 2.59 03/16/2023: HGB 12.7 06/14/2023: Gluc 103, GFR 56, Cr 1.26 Chol 218, LDL 151 10/14/2023: HGB 12.8 01/26/2024: B12 238L FT4 2.26H, TSH WNL GFR 58 HTGB 12.7L 06/30/2024: B12/folate: Neg 10/11/2024: LDL 122 WBC 4.0, HGB 12.9 01/08/2025: H/H 11.8/36.8, PLT 136 Not available 01/18/2025 14:13:29 05/17/2025 05/17/2025 10/31/2020: TSH/FT4: WNL Chol 145, TG 98, HDL 39, LDL 86 CMP: WNL CBC: H/H 12.6/39.2 11/04/2021: PSA: 2.48 TSH/FT4 WNL Chol 165, TG 75, HDL 49, LDL 101 CMP/CBC: WNL 05/07/2022: Dr Shannon Herman CBC: HGB 13.0 09/30/2022: TSH/FT4: WNL LDL [...] PLT 136 05/07/2025: LDL 116 HGB 12.9 Not available 05/17/2025 15:16:25 Plan of Treatment Reminders Order Date Submit Date Provider Last Modified By Organization Details Last Modified Time Details Appointments Any 15 2025 01:45P Del rowley MD Not available Not available Not available Lab vitamin B12 + folate, serum or blood 2024 025 [facility] (Lab), [address] [place], [address], 05/17/2025 17:20:47 lipid panel, serum 2024 025 [facility] (Lab), [address] [place], [address], 05/17/2025 17:20:47 CMP, serum or plasma 2024 025 [facility] (Lab), [address] [place], [address], 05/17/2025 17:20:47 TSH, serum or plasma 2024 025 [facility] (Lab), [address] [place], [address], 05/17/2025 17:20:47 CBC w/ auto diff 2024 025 [facility] (Lab), [address] [place], [address], 05/17/2025 17:20:47 T4, free, serum 2024 025 [facility] (Lab), [address] [place], [address], 05/17/2025 17:20:47 lipid panel, serum 2024 025 [facility], [address] [place], [address], 05/07/2025 16:56:31 CMP, serum or plasma 2024 025 [facility], [address] [place], [address], 05/07/2025 16:56:41 TSH, serum or plasma 2024 025 [facility], [address] [place], [address], 05/07/2025 17:27:27 CBC w/ auto diff 2024 025 [facility], [address] [place], [address], 05/07/2025 16:08:23 T4, free, serum 2024 025 [facility], [address] [place], [address], 05/07/2025 17:12:54 vitamin B12 + folate, serum or blood [address], [address] [place], [address], 07/18/2025 15:07:46 lipid panel, serum 2024 025 [facility], [address] [place], [address], 01/08/2025 16:22:32 CMP, serum or plasma 2024 025 [facility], [address] [place], [address], 01/08/2025 16:22:36 TSH, serum or plasma 2024 025 [facility], [address] [place], [address], 01/08/2025 17:01:46 CBC w/ auto diff 2024 025 [facility], [address] [place], [address], 01/08/2025 15:04:00 T4, free, serum 2024 025 [facility], [address] [place], [address], 01/08/2025 16:39:32 vitamin B12 + folate, serum or blood [address], [address] [place], [address], 04/17/2025 11:54:48 lipid panel, serum 2023 024 [facility], [address] [place], [address], 10/11/2024 14:43:48 CMP, serum or plasma 2023 024 [facility], [address] [place], [address], 10/11/2024 14:43:54 TSH, serum or plasma 2023 024 [facility], [address] [place], [address], 10/11/2024 15:11:42 CBC w/ auto diff 2023 024 [facility], [address] [place], [address], 10/11/2024 14:32:49 T4, free, serum 2023 024 [facility], [address] [place], [address], 10/11/2024 15:11:32 vitamin B12 + folate, serum or blood [address], [address] [place], [address], 01/09/2025 08:42:11 lipid panel, serum [address], [address] [place], [address], 09/06/2024 10:07:30 CMP, serum or plasma [address], [address] [place], [address], 09/06/2024 10:07:31 TSH, serum or plasma [address], [address] [place], [address], 09/06/2024 10:07:31 CBC w/ auto diff [address], [address] [place], [address], 09/06/2024 10:07:31 T4, free, serum [address], [address] [place], [address], 09/06/2024 10:07:31 vitamin B12 + folate, serum or blood [address], [address] [place], [address], 09/06/2024 10:07:33 vitamin B12 + folate, serum or blood [address] ([facility]), [address] [place], [address], 09/06/2024 10:07:02 Referral vascular surgeon referral - Please call patient to schedule an appointme nt. Thank you. 2024 025 [place], [address] [address], [address], [address], 05/18/2025 10:50:31 endocrino logy referral - Please call patient to schedule an appointme nt. Thank you. 2024 025 [place], [address] [address], [place], [address], 05/18/2025 10:45:25 nephrolog ist referral - Please call patient to schedule an appointme nt. Thank you. 2024 025 FRANCE Burnham MD (Nephrology, [address], [address], [place], [address], 05/18/2025 10:40:30 cardiolog ist referral - Please call patient to schedule an appointme nt. Thank you. 2024 025 [place], [address], [address], [place], [address], 05/18/2025 10:45:25 hematolog ist referral - Please call patient to schedule an appointme nt. Thank you. 2024 025 FRANCE Ortega, [address] [place], [address], 05/18/2025 10:45:26 vascular surgeon referral - Please call patient to schedule an appointme nt. Thank you. 2024 025 [place], [address], [address], [place], [address], 04/19/2025 11:02:02 endocrino logy referral - Please call patient to schedule an appointme nt. Thank you. 2024 025 [place], [address], [place], [address], 04/19/2025 11:02:07 hematolog ist referral - Please call patient to schedule an appointme nt. Thank you. 2024 025 maddy Ortega, [address], [place], [address], 04/19/2025 11:02:06 nephrolog ist referral - Please call patient to schedule an appointme nt. Thank you. 2024 025 maddy Burnham MD (Nephrology, [address], [address], [place], [address], 04/19/2025 11:02:04 cardiolog ist referral - Please call patient to schedule an appointme nt. Thank you. 2024 025 [place], [address], [address], [place], [address], 04/19/2025 11:02:03 vascular surgeon referral - Please call patient to schedule an appointme nt. Thank you. 2024 025 [place], [address], [address], [place], [address], 05/28/2025 14:21:04 endocrino logy referral - Please call patient to schedule an appointme nt. Thank you. 2024 025 [place], [address], [place], [address], 01/18/2025 08:38:44 hematolog ist referral - Please call patient to schedule an appointme nt. Thank you. 2024 025 maddy Cory [facility], [address] [place], [address], 05/28/2025 14:21:06 nephrolog ist referral - Please call patient to schedule an appointme nt. Thank you. 2024 025 maddy Burnham MD (Nephrology, [address], [address], [place], [address], 01/18/2025 08:38:43 cardiolog ist referral - Please call patient to schedule an appointme nt. Thank you. 2024 [place], [address], [address], [place], [address], 01/18/2025 08:38:41 vascular surgeon referral - Please call patient to schedule. 2023 024 [place], [address], [address], [place], [address], 01/17/2025 08:28:43 endocrino logy referral - Please call patient to schedule. 2023 024 [place], [address], [place], [address], 01/17/2025 08:28:44 hematolog ist referral - Please call patient to schedule. 2023 024 maddy Ortega, [address], [place], [address], 01/17/2025 08:28:44 nephrolog ist referral 2023 024 [email or web address] Blake Burnham MD (Nephrology, [address], [address], [place], [address], 07/18/2024 08:26:49 cardiolog ist referral - Please call patient to schedule. 2023 024 [place], [address], [address], [place], [address], 01/17/2025 08:28:43 vascular surgeon referral 2023 024 [place], [address], [address], [place], [address], 09/06/2024 10:08:02 endocrino logy referral 2023 024 [place], [address], [place], [address], 10/09/2024 12:48:36 hematolog ist referral 2023 024 maddy Ortega, [address], [place], [address], 09/06/2024 10:08:06 nephrolog ist referral 2023 024 [email or web address] Blake Burnham MD (Nephrology, [address], [address], [place], [address], 09/06/2024 10:08:04 cardiolog ist referral 2023 024 [email or web address] [place], [address], [address], [place], [address], 09/06/2024 10:08:03 Procedures None recorded. Surgeries None recorded. Imaging None recorded. Medication Orders atorvasta tin 40 mg tablet [address] [facility], [address] [place] [address], [address], 05/17/2025 15:47:47 tadalafil 20 mg tablet [address] [facility] [address] [facility], [address] [place] [address], [address], 01/18/2025 15:00:22 atorvasta tin 40 mg tablet 2024 025 [facility], [address] [place] [address], [address], 10/19/2024 15:25:05 tadalafil 20 mg tablet [address] [facility] [address] [facility], [address] [place] [address], [address], 10/19/2024 15:23:57 atorvasta tin 40 mg tablet 2023 024 [facility], [address] [place] [address], [address], 07/13/2024 14:55:44 tadalafil 20 mg tablet 2023 024 [facility], [address] [place] [address], [address], 07/13/2024 14:55:44 tadalafil 20 mg tablet 2023 024 [facility], [address] [place] [address], [address], 04/10/2024 16:57:55 cyanocoba ayla (vit B-12) 1,000 mcg/mL injection solution 2023 024 [email or web address] [facility], [address] [place] [address], [address], 10/19/2024 14:56:00 Patient TargetsNo targets recorded. Patient InstructionsNo instructions recorded. Reason for Referral Vascular Surgeon Referral fo r Peripheral vascular disease Referring Physician: Lynette Bentley Internal Medicine, Encounter Date: 03/09/2024 Deli Bakery Clerk Referral for Es sential hypertension Referring Physician: Lynette Bentley Internal Medicine, Encounter Date: 03/09/2024 Corncob Pipe Supervisor Referral for Ch ronic kidney disease Referring Physician: hCristiano Carcamo Medicine, Encounter Date: 03/09/2024 Referring Physician: Christiano Carcamo Medicine, Encounter Date: 03/09/2024 Endocrinology Referral for H yperthyroidism Referring Physician: Christiano Carcamo Medicine, Encounter Date: 03/09/2024 Vascular Surgeon Referral fo r Peripheral vascular disease Please call patient to schedule. Referring Physician: Christiano Carcamo Medicine, Encounter Date: 07/13/2024 Deli Bakery Clerk Referral for Es sential hypertension Please call patient to schedule. Referring Physician: Christiano Carcamo Medicine, Encounter Date: 07/13/2024 Corncob Pipe Supervisor Referral for Ch ronic kidney disease Referring Physician: Christiano Carcamo Medicine, Encounter Date: 07/13/2024 Please call patient to sched ule. Referring Physician: Christiano Carcamo Medicine, Encounter Date: 07/13/2024 Endocrinology Referral for H yperthyroidism Please call patient to schedule. Referring Physician: Lynette Bentley Internal Medicine, Encounter Date: 07/13/2024 Vascular Surgeon Referral fo r Peripheral vascular disease Please call patient to schedule an appointment. Thank you. Referring Physician: Christiano Carcamo, Encounter Date: 10/19/2024 Deli Bakery Clerk Referral for Es sential hypertension Please call patient to schedule an appointment. Thank you. Referring Physician: Christiano Carcamo, Encounter Date: 10/19/2024 Corncob Pipe Supervisor Referral for Ch ronic kidney disease Please call patient to schedule an appointment. Thank you. Referring Physician: Christiano Carcamo, Encounter Date: 10/19/2024 Please call patient to sched ule an appointment. Thank you. Referring Physician: Christiano Carcamo, Encounter Date: 10/19/2024 Endocrinology Referral for H yperthyroidism Please call patient to schedule an appointment. Thank you. Referring Physician: Christiano Carcamo Medicine, Encounter Date: 10/19/2024 Vascular Surgeon Referral fo r Peripheral vascular disease Please call patient to schedule an appointment. Thank you. Referring Physician: Christiano Carcamo, Encounter Date: 01/18/2025 Deli Bakery Clerk Referral for Es sential hypertension Please call patient to schedule an appointment. Thank you. Referring Physician: Christiano Carcamo, Encounter Date: 01/18/2025 Corncob Pipe Supervisor Referral for Ch ronic kidney disease Please call patient to schedule an appointment. Thank you. Referring Physician: Lynette Bentley Internal Medicine, Encounter Date: 01/18/2025 Please call patient to sched ule an appointment. Thank you. Referring Physician: Lynette Bentley Internal Medicine, Encounter Date: 01/18/2025 Endocrinology Referral for H yperthyroidism Please call patient to schedule an appointment. Thank you. Referring Physician: Lynette Bentley Internal Medicine, Encounter Date: 01/18/2025 Vascular Surgeon Referral fo r Peripheral vascular disease Please call patient to schedule an appointment. Thank you. Referring Physician: Lynette Bentley Internal Medicine, Encounter Date: 05/17/2025 Deli Bakery Clerk Referral for Es sential hypertension Please call patient to schedule an appointment. Thank you. Referring Physician: Lynette Bentley Internal Medicine, Encounter Date: 05/17/2025 Corncob Pipe Supervisor Referral for Ch ronic kidney disease Please call patient to schedule an appointment. Thank you. Referring Physician: Lynette Bentley Internal Medicine, Encounter Date: 05/17/2025 Seed Analysis Laboratory Assistant Referral for An emia Please call patient to schedule an appointment. Thank you. Referring Physician: Lynette Bentley Internal Medicine, Encounter Date: 05/17/2025 Endocrinology Referral for H yperthyroidism Please call patient to schedule an appointment. Thank you. Referring Physician: Lynette Bentley Internal Medicine, Encounter Date: 05/17/2025 Results Created Date Observation Date Name Description Value Unit Range Abnormal Flag Note LastModifiedBy Organization Detail LastModifiedTime 06/30/20 24 06/30/2024 VITAM IN B12 (STEPHEN AYLA ) vb12 832 pg/mL 239-93 1 Not Available [facility] (Lab) [address] [place], [address], 06/30/2024 16:56:49 06/30/20 24 06/30/2024 FOLAT E, SERUM /PLAS MA folate >20.0 NG/mL 2.76-2 0.0 Not Available [facility] (Lab) [address] [place], [address], 06/30/2024 16:56:52 10/11/19 25 10/11/2024 CBC/C OMPLE TE BLD COUNT W/DIF F white blood cells 4.0 x10'3 /uL 4.2-10 .8 low Not Available [facility] (Lab) [address] [place], [address], 10/11/2024 14:32:49 10/11/19 25 10/11/2024 CBC/C OMPLE TE BLD COUNT W/DIF F red blood cells 4.41 x10'6 /uL 4.10-5 .80 Not Available [facility] (Lab) [address] [place], [address], 10/11/2024 14:32:49 10/11/19 25 10/11/2024 CBC/C OMPLE TE BLD COUNT W/DIF F hemoglobin 12.9 g/dL 13.2-1 7.0 low Not Available [facility] (Lab) [address] [place], [address], 10/11/2024 14:32:49 10/11/19 25 10/11/2024 CBC/C OMPLE TE BLD COUNT W/DIF F hematocrit 39.7 % 39.3-5 0.0 Not Available [facility] (Lab) [address] [place], [address], 10/11/2024 14:32:49 10/11/19 25 10/11/2024 CBC/C OMPLE TE BLD COUNT W/DIF F mean red cell volume 90.0 fL 80.0-9 7.0 Not Available [facility] (Lab) [address] [place], [address], 10/11/2024 14:32:49 10/11/19 25 10/11/2024 CBC/C OMPLE TE BLD COUNT W/DIF F mean red cell hemoglobin 29.3 pg 27.0-3 3.0 Not Available [facility] (Lab) [address] [place], [address], 10/11/2024 14:32:49 10/11/19 25 10/11/2024 CBC/C OMPLE TE BLD COUNT W/DIF F mean RBC HGB concentratio n 32.5 g/dL 31.0-3 6.0 Not Available [facility] (Lab) [address] [place], [address], 10/11/2024 14:32:49 10/11/19 25 10/11/2024 CBC/C OMPLE TE BLD COUNT W/DIF F red cell distribution width 13.6 % 11.8-1 5.5 Not Available [facility] (Lab) [address] [place], [address], 10/11/2024 14:32:49 10/11/19 25 10/11/2024 CBC/C OMPLE TE BLD COUNT W/DIF F platelets 172 x10'3 /uL 150-40 0 Not Available [facility] (Lab) [address] [place], [address], 10/11/2024 14:32:49 10/11/19 25 10/11/2024 CBC/C OMPLE TE BLD COUNT W/DIF F mean platelet volume 9.5 fL 9.0-12 .4 Not Available [facility] (Lab) [address] [place], [address], 10/11/2024 14:32:49 10/11/19 25 10/11/2024 CBC/C OMPLE TE BLD COUNT W/DIF F neutrophils 43.3 % 39.0-7 2.0 Not Available [facility] (Lab) [address] [place], [address], 10/11/2024 14:32:49 10/11/19 25 10/11/2024 CBC/C OMPLE TE BLD COUNT W/DIF F lymphocytes 42.1 % 16.0-4 7.0 Not Available [facility] (Lab) [address] [place], [address], 10/11/2024 14:32:49 10/11/19 25 10/11/2024 CBC/C OMPLE TE BLD COUNT W/DIF F monocytes 10.5 % 5.0-12 .0 Not Available [facility] (Lab) [address] [place], [address], 10/11/2024 14:32:49 10/11/19 25 10/11/2024 CBC/C OMPLE TE BLD COUNT W/DIF F eosinophils 3.8 % 1.0-7. 0 Not Available [facility] (Lab) [address] [place], [address], 10/11/2024 14:32:49 10/11/19 25 10/11/2024 CBC/C OMPLE TE BLD COUNT W/DIF F basophils 0.3 % 0.0-2. 0 Not Available [facility] (Lab) [address] [place], [address], 10/11/2024 14:32:49 10/11/19 25 10/11/2024 CBC/C OMPLE TE BLD COUNT W/DIF F immature granulocytes 0.0 % 0.00-0 .50 Not Available [facility] (Lab) [address] [place], [address], 10/11/2024 14:32:49 10/11/19 25 10/11/2024 CBC/C OMPLE TE BLD COUNT W/DIF F neutrophils, absolute count 1.73 x10'3 /uL 1.5-8. 0 Not Available [facility] (Lab) [address] [place], [address], 10/11/2024 14:32:49 10/11/19 25 10/11/2024 CBC/C OMPLE TE BLD COUNT W/DIF F lymphocytes, absolute count 1.68 x10'3 /uL 1.07-3 .43 Not Available [facility] (Lab) [address] [place], [address], 10/11/2024 14:32:49 10/11/19 25 10/11/2024 CBC/C OMPLE TE BLD COUNT W/DIF F monocytes, absolute count 0.42 x10'3 /uL 0.29-0 .99 Not Available [facility] (Lab) [address] [place], [address], 10/11/2024 14:32:49 10/11/19 25 10/11/2024 CBC/C OMPLE TE BLD COUNT W/DIF F eosinophils, absolute count 0.15 x10'3 /uL 0.02-0 .53 Not Available [facility] (Lab) [address] [place], [address], 10/11/2024 14:32:49 10/11/19 25 10/11/2024 CBC/C OMPLE TE BLD COUNT W/DIF F basophils, absolute count 0.01 x10'3 /uL 0.01-0 .08 Not Available [facility] (Lab) [address] [place], [address], 10/11/2024 14:32:49 10/11/19 25 10/11/2024 CBC/C OMPLE TE BLD COUNT W/DIF F immature granulocytes ,absolute 0.00 x10'3 /uL 0.00-0 .05 Not Available [facility] (Lab) [address] [place], [address], 10/11/2024 14:32:49 10/11/19 25 10/11/2024 CBC/C OMPLE TE BLD COUNT W/DIF F nucleated red blood cells 0.0 % -0 Not Available [facility] (Lab) [address] [place], [address], 10/11/2024 14:32:49 10/11/19 25 10/11/2024 CBC/C OMPLE TE BLD COUNT W/DIF F NRBC# 0.00 x10'3 /uL Not Available [facility] (Lab) [address] [place], [address], 10/11/2024 14:32:49 10/11/19 25 10/11/2024 LIPID PANEL cholesterol 187 mg/dL 140-19 9 [facility] DRISS NSUS RECOM MENDA TION FOR RAFA STERO L: ADULT CHILD LOW RISK: <200 <170 BORDE RLINE : <200- 239 ----- HIGH RISK: >240 >200 Not Available [facility] (Lab) [address] [place], [address], 10/11/2024 14:43:48 10/11/19 25 10/11/2024 LIPID PANEL triglyceride s 67 mg/dL 0-150 NIH DRISS NSUS REPOR T RECOM MENDA TION FOR TRIGL YCERI BALJIT: ADULT CHILD LOW RISK: <150 ----- BODER LINE: 150-1 99 ----- HIGH RISK: >200 ----- Not Available [facility] (Lab) [address] [place], [address], 10/11/2024 14:43:48 10/11/19 25 10/11/2024 LIPID PANEL HDL cholesterol 52 mg/dL 40- Not Available [facility] (Lab) [address] [place], [address], 10/11/2024 14:43:48 10/11/19 25 10/11/2024 LIPID PANEL LDL cholesterol, calculated 122 mg/dL 0-130 [facility] DRISS NSUS REPOR T RECOM MENDA TIONS FOR LDL: ADULT CHILD LOW RISK <130 <110 (OPTI MAL LDL) <100 ----- BORDE RLINE : 130-1 59 ----- HIGH RISK: >160 >130 A TRIGL YCERI DE RESUL T >400 INVAL IDATE S THE CALCU LATIO N FOR LDL FRACT IONAT ION - THE LDL RESUL T WILL NOT BE REPOR TANIA. Not Available [facility] (Lab) [address] [place], [address], 10/11/2024 14:43:48 10/11/19 25 10/11/2024 COMPR EHENS OSCAR METAB OLIC PANEL sodium 138 mmol/ L 137-14 5 Not Available [facility] (Lab) [address] [place], [address], 10/11/2024 14:43:54 10/11/19 25 10/11/2024 COMPR EHENS OSCAR METAB OLIC PANEL potassium 3.9 mmol/ L 3.5-5. 1 Not Available [facility] (Lab) [address] [place], [address], 10/11/2024 14:43:54 10/11/19 25 10/11/2024 COMPR EHENS OSCAR METAB OLIC PANEL chloride 106 mmol/ L 98-107 Not Available [facility] (Lab) [address] [place], [address], 10/11/2024 14:43:54 10/11/19 25 10/11/2024 COMPR EHENS OSCAR METAB OLIC PANEL carbon dioxide 28 mmol/ L 22-30 Not Available [facility] (Lab) [address] [place], [address], 10/11/2024 14:43:54 10/11/19 25 10/11/2024 COMPR EHENS OSCAR METAB OLIC PANEL anion gap 7.9 mmol/ L 14-22 low Not Available [facility] (Lab) [address] [place], [address], 10/11/2024 14:43:54 10/11/19 25 10/11/2024 COMPR EHENS OSCAR METAB OLIC PANEL glucose 81 mg/dL 70-99 Not Available [facility] (Lab) [address] [place], [address], 10/11/2024 14:43:54 10/11/19 25 10/11/2024 COMPR EHENS OSCAR METAB OLIC PANEL BUN 11 mg/dL 8-19 Not Available [facility] (Lab) [address] [place], [address], 10/11/2024 14:43:54 10/11/19 25 10/11/2024 COMPR EHENS OSCAR METAB OLIC PANEL creatinine 1.13 mg/dL 0.66-1 .25 Not Available [facility] (Lab) [address] [place], [address], 10/11/2024 14:43:54 10/11/19 25 10/11/2024 COMPR EHENS OSCAR METAB OLIC PANEL GFR >60 Refer ence Range : [place] ge GFR Healt hy Adult : >60 mL/mi n/1.7 3 m2 Chron ic Kidne y Disea se: 15-60 mL/mi n/1.7 3 m2 Kidne y Failu re: <15/m L/min /1.73 m2 www.n iddk. nih.g ov The MDRD study equat ion has not been valid ated in child tarsha <18 years of age; pregn ant women ; the elder ly >85 years of age; or in some racia l or ethni c subgr oups, such as Hisme nics. Outsi de the valid ated cydney eters , estim ated GFR is less accur ate, requi ring clini wisam judgm ent on a case- by-ca se basis . Clini wisam inter preta tion for other races and ages must be made by the clini indira. The MDRD study equat ion has not been valid ated for the evalu ation of serum creat inine relat ed to nutri jens l statu s or medic ation usage . For perso ns <18 years of age, a pedia tric GFR calcu lator is avail able on the NKF websi te: https ://heber prieto.aaron major/pr ofess ional s/kdo qi/gf r_cal culat or Not Available [facility] (Lab) [address] [place], [address], 10/11/2024 14:43:54 10/11/19 25 10/11/2024 COMPR EHENS OSCAR METAB OLIC PANEL alkaline phosphatase 96 U/L 38-126 Not Available [facility] (Lab) [address] [place], [address], 10/11/2024 14:43:54 10/11/19 25 10/11/2024 COMPR EHENS OSCAR METAB OLIC PANEL alanine aminotransfe rase 31 U/L 0-50 Not Available [facility] (Lab) [address] [place], [address], 10/11/2024 14:43:54 10/11/19 25 10/11/2024 COMPR EHENS OSCAR METAB OLIC PANEL aspartate aminotransfe rase 37 U/L 15-46 Not Available [facility] (Lab) [address] [place], [address], 10/11/2024 14:43:54 10/11/19 25 10/11/2024 COMPR EHENS OSCAR METAB OLIC PANEL bilirubin, total 1.20 mg/dL 0.20-1 .30 Not Available [facility] (Lab) [address] [place], [address], 10/11/2024 14:43:54 10/11/19 25 10/11/2024 COMPR EHENS OSCAR METAB OLIC PANEL calcium 9.6 mg/dL 8.4-10 .2 Not Available [facility] (Lab) [address] [place], [address], 10/11/2024 14:43:54 10/11/19 25 10/11/2024 COMPR EHENS OSCAR METAB OLIC PANEL total protein 7.8 g/dL 6.3-8. 2 Not Available [facility] (Lab) [address] [place], [address], 10/11/2024 14:43:54 10/11/19 25 10/11/2024 COMPR EHENS OSCAR METAB OLIC PANEL albumin 4.3 g/dL 3.0-4. 4 Not Available [facility] (Lab) [address] [place], [address], 10/11/2024 14:43:54 10/11/19 25 10/11/2024 COMPR EHENS OSCAR METAB OLIC PANEL globulin 3.5 g/dL 2.6-4. 2 Not Available [facility] (Lab) [address] [place], [address], 10/11/2024 14:43:54 10/11/19 25 10/11/2024 COMPR EHENS OSCAR METAB OLIC PANEL A/G ratio 1.2 ratio 1.0-2. 0 Not Available [facility] (Lab) [address] [place], [address], 10/11/2024 14:43:54 10/11/19 25 10/11/2024 T4 FREE free T4 1.25 NG/dL 0.78-2 .19 Not Available [facility] (Lab) [address] [place], [address], 10/11/2024 15:11:31 10/11/19 25 10/11/2024 TSH thyroid-stim ulating hormone 1.550 uIU/m L 0.465- 4.680 Not Available [facility] (Lab) [address] [place], [address], 10/11/2024 15:11:42 10/11/19 25 10/11/2024 VITAM IN B12 (STEPHEN AYLA ) vb12 780 pg/mL 239-93 1 Not Available [facility] (Lab) [address] [place], [address], 10/11/2024 16:07:09 10/11/19 25 10/11/2024 FOLAT E, SERUM /PLAS MA folate >20.0 NG/mL 2.76-2 0.0 Not Available [facility] (Lab) [address] [facility], [place], [address], 10/11/2024 16:07:11 02/18/20 24 02/18/2024 US, head + neck, soft tissu e [facility] [address] [place] [address] [phone] Patien t Name: NEIL SHELTON Access ion #: [id number] Sex: M : 1949 7 Dictat ed By: Joseph Stephenson Attend ing Physic billie: DMITRIY AGUILAR Orderi ng Physic billie: DMITRIY AGUILAR Exam Date: 2023 13:36 PM Exam Name: US NECK HEAD SOFT TISSUE Admitt ing Diagno sis(es ): ULTRAS OUND SOFT TISSUE HEAD AND NECK CLINIC AL INDICA TION: pain TECHNI QUE: Multip le real time sonogr aphic images of the thyroi d were obtain ed. FINDIN GS: The right thyroi d gland measur es 5 x 2 x 2 cm. The left thyroi d gland measur es approx imatel y 5 x 2 x 2 cm. The isthmu s measur es 1 cm. Subcen timete r TI-RAD S 3 nodule . Follow -up in 1 year. IMPRES BRIAN: Subcen timete r TI-RAD S 3 nodule . Follow -up in 1 year. Rad Recinos of Radiol ogy TI-RAD S Catego eliel and Recomm endati ons (2017) : TR1: 0 points , Benign , No FNA TR2: 2 points , Not suspic ious, No FNA TR3: 3 points , Mildly suspic ious, FNA if > or = 2.5 cm, Follow if > or = 1.5 cm TR4: 4-6 points , Modera tely Suspic ious, FNA if > or = 1.5 cm, Follow if > or = 1.0 cm Page 1 [facility] [address] [facility] [place] [address] Patihina t Name: NEIL SHELTON Access ion #: [id number] Sex: M : 1949 7 Dictat ed By: Joseph Stephenson Attend ing Physic billie: MARIMAR FERGUSON Orderi ng Physic billie: DMITRIY AGUILAR Exam Date: 2023 13:36 PM Exam Name: US NECK HEAD SOFT TISSUE Admitt ing Diagno sis(es ): TR5: 7+ points , Highly Suspic ious, FNA if > or = 1.0 cm, Follow if > or = 0.5 cm Follow -up ultras ound guidel uday: TR5: yearly for 5 years, if no growth or change in TI-RAD S level TR4: at 1, 2, 3 and 5 years, if no growth or change in TI-RAD S level TR3: at 1, 3 and 5 years, if no growth or change in TI-RAD S level If increa sed but below thresh old for FNA, repeat in one year. Source : ACR Thyroi d Noéin g, Report ing and Data System (TI-RA DS): White Paper of the ACR TI-RAD S Commit nas. Gisel et al., J Am Valerie Radiol 2017;1 4:587- 595. Electr onical ly Signed by: Joseph Stephenson at 2023 15:51: 04 PM Page 2 INTERFACE [facility] (Imaging) [address] [place], [address], 02/18/2024 16:53:14 02/18/20 24 02/18/2024 US, thyro id No observ ation record ed. [facility] [address] [place], [address], 02/18/2024 17:05:34 12/15/19 25 12/14/2024 imagi ng/di agnos tic resul t No observ ation record ed. [facility] [address], [place], [address], 12/14/2024 15:45:58 12/28/19 25 12/27/2024 imagi ng/di agnos tic resul t No observ ation record ed. CHIDI [facility] [address], [place], [address], 12/27/2024 17:39:32 Result Notes None recorded. Problems Name Problem SNOMED Code Status Onset Date Resolution Date Notes Provider Name and Address Organization Details Recorded Time Deep venous thrombosis 887402800 Active Not Available [facility] 3 07:30:41 Peripheral vascular disease 067082642 Active Lynette birch MD [address], [place], [address] , [employer] [facility] [employer] 5 13:07:06 Essential hypertensi on 55451690 Active Lynette birch MD [address], [address], [place], [address] , [employer] [facility] [employer] [facility] 5 15:17:26 Erectile dysfunctio n 654977525 Active Not Available Critical access hospital 3 07:30:41 Bilateral cataracts 03812770 Active Lynette birch MD [address], [place], [address] , [facility] [employer] [facility] 5 13:07:06 Onychomyco sis 770781972 Active 2020 Lynette birch MD [address], [address], [place], [address] , [facility] [email or web address] GROUP [facility] 5 13:07:06 Pain of right knee joint 1252006498111 00 Active 2021 Lynette birch MD [address], [place], [address] , [employer] [facility] 5 13:07:07 Pain of left knee joint 2127798042620 07 Active 2021 Not Available [facility] 3 07:30:41 Vitamin D deficiency 05618967 Active 2021 Not Available [facility] 3 07:30:41 Hyperlipid emia 22658326 Active 2021 Lyntete birch MD [address], [place], [address] , [employer] - [facility] 5 15:17:26 Chronic kidney disease 497164681 Active 2022 Lynette birch MD [address], [place], [address] , [employer] - S [employer] [facility] 5 15:17:26 Deep venous thrombosis of lower extremity 848452286 Active 2022 Lynette birch MD [address], [place], [address] , [employer] - [facility] 5 13:07:06 Primary erectile dysfunctio n 851395856 Active 2022 Lynette birch MD [address], [place], [address] , [employer] [facility] [place] [facility] 5 15:38:05 Anemia 670241789 Active 2022 Lynette birch MD [address], [place], [address] , [employer] [facility] 5 13:07:07 Disorder of prostate 99465759 Active 2022 Not Available [facility] 3 07:30:41 Urinary incontinen ce 211215224 Active 2022 Lynette birch MD [address], [place], [address] , [facility] [employer] [facility] 5 13:07:07 Hyperthyro idism 18060749 Active 2023 Lynette birch MD [address], [facility] [address], [place], [address] , [facility] [employer] [facility] 5 13:07:07 Serum vitamin B12 below reference range 975171826 Active 2023 Lynette birhc MD [address], [facility] [address], [place], [address] , [facility] [employer] [facility] 5 13:07:07 Cobalamin deficiency 354734557 Active 2023 Colleen Diaz MA [facility], [facility] [employer] [facility] 4 18:30:58 Problem Notes None recorded. Procedures Surgical History Date Name Laterality Status Provider Name and Address Organization Details Recorded Time 06/22/20 Medicare Wellness CPT Code, subsequent completed Ilana Shipman RN [facility] [employer] [facility] 06/22/2023 14:50:39 Tonsillectomy completed Not Available [employer] [...] Not Available Not Available Not Available cyanocoba ayla (vit B-12) 1,000 mcg/mL injection solution inject [...] mass index (BMI) Body weight Body temperature Heart rate Systolic And Diastolic Provider Name and Address Organization Details Last Updated DateTime 5 167.64 cm 33.2 kg/m2 38424.0 3 g 97.4 [degF] 78 /min 130/78 mm[Hg] JOSE Willams [employer] 5 15:00:44 Date Recorded Body height Body mass index (BMI) Body weight Body temperature Heart rate Oxygen saturation Pain severity - 0-10 verbal numeric rating [Score] - Reported Systolic And Diastolic Provider Name and Address Organization Details Last Updated DateTime 5 167.64 cm 34 kg/m2 74994.1 9 g 98.1 [degF] 78 /min 97 % 0 126/64 mm[Hg] Rosie Mcarthur MA [employer] 5 14:36:48 Date Recorded Body height Body mass index (BMI) Body weight Body temperature Heart rate Systolic And Diastolic Provider Name and Address Organization Details Last Updated DateTime 4 167.64 cm 34.5 kg/m2 30770.7 7 g 97.5 [degF] 66 /min 122/66 mm[Hg] JOSE Willams [employer] [facility] [employer] 4 14:57:57 Date Recorded Body height Body mass index (BMI) Body weight Body temperature Pain severity - 0-10 verbal numeric rating [Score] - Reported Heart rate Oxygen saturation Systolic And Diastolic Provider Name and Address Organization Details Last Updated DateTime 5 167.64 cm 34.2 kg/m2 51500.5 8 g 97.8 [degF] 0 83 /min 95 % 120/70 mm[Hg] Rosie Mcarthur MA [email or web address] 5 14:46:21 Date Recorded Body height Body mass index (BMI) Body weight Body temperature Heart rate Systolic And Diastolic Provider Name and Address Organization Details Last Updated DateTime 4 167.64 cm 34.1 kg/m2 59800.9 9 g 97.3 [degF] 78 /min 148/82 mm[Hg] JOSE Willams [place] [facility] [employer] 4 14:20:54 Social History Question Answer Notes LastModified by Organizat ion Details LastModified Time Tobacco Smoking Status Never Smoker Not Available [employer] 10/21/2022 00:40:27 Do You Have An Advance Directive? Yes MIGRATION.22263 18019 Information not available 10/21/2022 Are You Blind Or Do You Have Difficulty Seeing? No MIGRATION.24131 84830 Information not available 10/21/2022 What Is Your Level Of Caffeine Consumption? None MIGRATION.27961 97578 Information not available 10/21/2022 How Much Tobacco Do You Chew? None MIGRATION.11883 76178 Information not available 10/21/2022 In The 14 Days Before Symptom Onset, Have You Had Close Contact With A Laboratory-confi rmed COVID-19 While That Case Was Ill? No MIGRATION.16574 22727 Information not available 10/21/2022 In The 14 Days Before Symptom Onset, Have You Had Close Contact With A Person Who Is Under Investigation For COVID-19 While That Person Was Ill? No MIGRATION.41855 55729 Information not available 10/21/2022 Are You Deaf Or Do You Have Serious Difficulty Hearing? No MIGRATION.86877 42729 Information not available 10/21/2022 What Type Of Diet Are You Following? REGULAR MIGRATION.40437 59178 Information not available 10/21/2022 Which Illicit Or Recreational Drugs Have You Used? None MIGRATION.50696 75857 Information not available 10/21/2022 What Is The Highest Grade Or Level Of School You Have Completed Or The Highest Degree You Have Received? VI53465-8 MIGRATION.02729 68937 Information not available 10/21/2022 Have There Been Any Changes To Your Family Or Social Situation? No MIGRATION.30299 17919 Information not available 10/21/2022 What Is The Fluoride Status Of Your Home? Unknown MIGRATION.36572 79690 Information not available 10/21/2022 Are There Any Guns Present In Your Home? No MIGRATION.38254 08426 Information not available 10/21/2022 Do You Use Insect Repellent Routinely? No MIGRATION.02692 75041 Information not available 10/21/2022 Where Do You Live? [facility] MIGRATION.07081 96836 Information not available 10/21/2022 Guns Present In The Home? No [email or web address] Information not available 06/22/2023 Are You Able To Care For Yourself? Yes Information not available 06/22/2023 Are You Blind Or Do Yo Have Difficulty Seeing? No [email or web address] Information not available 06/22/2023 Are You Deaf Or Do You Have Serious Difficulty Hearing? No [email or web address] Information not available 06/22/2023 Live Alone Of With Others? With Others [email or web address] Information not available 06/22/2023 Do You Have A Medical Power Of Filters Assembler? Yes MIGRATION.95821 63617 Information not available 10/21/2022 What Was The Date Of Your Most Recent Tobacco Screening? 05/17/2025 Information not available 05/17/2025 Do You Have Any Pets? No MIGRATION.73519 44587 Information not available 10/21/2022 What Is Your Relationship Status? MIGRATION.17036 31021 Information not available 10/21/2022 Do You Use Your Seat Belt Or Car Seat Routinely? Yes MIGRATION.73459 04559 Information not available 10/21/2022 Do You Have Smoke And Carbon Monoxide Detectors In Your Home? Yes MIGRATION.45637 10373 Information not available 10/21/2022 Are You Passively Exposed To Smoke? No MIGRATION.71156 03201 Information not available 10/21/2022 Are There Any Smokers In Your House? No MIGRATION.98108 11240 Information not available 10/21/2022 How Much Tobacco Do You Smoke? No MIGRATION.46931 66727 Information not available 10/21/2022 Do You Use Sunscreen Routinely? No MIGRATION.79759 49820 Information not available 10/21/2022 Has Tobacco Cessation Counseling Been Provided? No N/a MIGRATION.17919 70433 Information not available 10/21/2022 Have You Recently Traveled Abroad? No MIGRATION.09833 33848 Information not available 10/21/2022 Do You Have Difficulty Walking Or Climbing Stairs? Yes Uses A Cane [email or web address] Information not available 06/22/2023 Do You Have Any Dietary Restrictions? No MIGRATION.47062 81592 Information not available 10/21/2022 Sex: Male Functional Status Question Answer Note LastModified by Organizat ion Details LastModified Time Do you or have you ever used smokeless tobacco? Never used smokeless tobacco MIGRATION.765887 7299 Information not available 10/21/2022 Are you currently employed? No Information not available 01/18/2025 Do you have transportation difficulties? No MIGRATION.893876 4926 Information not available 10/21/2022 Are you able to care for yourself independently? Yes MIGRATION.630750 7514 Information not available 10/21/2022 Do you have difficulty dressing, bathing, grooming, or toileting? No MIGRATION.740515 2055 Information not available 10/21/2022 Do you or have you ever used e-cigarettes or vape? Never used electronic cigarettes MIGRATION.792565 3207 Information not available 10/21/2022 What is your exercise level? Occasional [email or web address] Information not available 06/22/2023 Do you use any illicit or recreational drugs? No MIGRATION.925128 5932 Information not available 10/21/2022 Do you or have you ever used any other forms of tobacco or nicotine? No MIGRATION.891398 0083 Information not available 10/21/2022 What is your level of alcohol consumption? None MIGRATION.360949 4127 Information not available 10/21/2022 Are you able to walk independently without assistance or assistive devices? YESWOREST MIGRATION.268709 5043 Information not available 10/21/2022 Do you have difficulty doing errands alone? No MIGRATION.680471 5766 Information not available 10/21/2022 What is your occupation? retired MIGRATION.263791 2173 Information not available 10/21/2022 Mental Status Question Answer Note LastModified by Organizat ion Details LastModified Time Do you feel stressed (tense, restless, nervous, or anxious, or unable to sleep at night)? VI9277-2 MIGRATION.71905539 26 Information not available 10/21/2022 Do you have difficulty concentrating, remembering or making decisions? No MIGRATION.16891485 26 Information not available 10/21/2022 Family History Relationship Description Onset Age of this Age Resolved Age Notes LastModified by Organization Details LastModified Time Father No current problems or disability MIGRATION.053 [id number] Not available 10/21/2022 00:42:27 Mother No current problems or disability MIGRATION.466 6304934 Not available 10/21/2022 00:42:28 Medical History Condition [...] SCHIZOPHRENIA N SHINGLES N SHOULDER PAIN N BOWEL PROBLEMS N DEPRESSION (INCLUDING POST ) N STROKE/TIA N ULCERS N KNEE PAIN [...] N CHRONIC PAIN SYNDROME N HYPOTHYROIDISM N CONSTIPATION N CAROTID BLOCKAGE N BACK / NECK PROBLEMS N ATHEROSCLEROSIS [...] ICD10 Code Diagnosis IMO Codes Diagnosis Note [id number] Lynette birch MD [facility] [address] [address] 10/24/2020 00:00:00 10/24/2020 18:57:19 [id number] [facility] _ATHENA_M IGRATION_ DEFAULT_1 _1 , 11/08/2020 00:00:00 11/12/2020 11:47:48 [id number] _ATHN_MIGR ATION_1 _ATHENA_M IGRATION_ DEFAULT_1 _1 , 01/22/2021 00:00:00 01/22/2021 14:32:18 [id number] Lynette birch MD [facility] [address], [address] [address] 02/27/2021 00:00:00 03/11/2021 18:22:31 [id number] Lynette birch MD [facility] [address] [address] 07/03/2021 00:00:00 07/03/2021 14:38:39 [id number] Lynette birch MD [facility] [address] [place] [address] 11/06/2021 00:00:00 11/06/2021 17:53:21 [id number] Tobias Engel MD [facility] [address], [address] [place] [address] 12/11/2021 00:00:00 12/11/2021 15:14:33 [id number] Lynette birch MD [facility] Internal Med [facility] [address] [facility] [address] [place] [address] 05/07/2022 00:00:00 06/04/2022 16:12:20 [id number] Lynette birch MD [facility] Internal Med [facility] [address] [facility] [address] [facility] [address] [place] [address] 10/22/2022 13:54:30 10/22/2022 14:24:36 Screening - NAD 694416510 Z13.9 C-scope: 03/31/2021 : Dr Jiang next in 10 yearsGet yearly flu shotGet Tdap if not doneGet PCV #13 and then #23Get shingles vaccineGet COVID 19 vaccineHe refuses all vaccines 09/26/2020 , 02/27/2021 , 07/03/2021 , 10/22/2022 RTC in 4 monthsDo labsER if worseHe did verbalize his understand ing of the above Essential hypertension 25722007 I10 On lisinopril 10mg dailyOn lasix Get labs [facility] Dr Hilario 11/13/2021 , next in 6 months Deep venou s thrombosis of lower extremity 269043752 I82.409 On xarelto 20mg daily, wants to get off this, DVT on the L leg in 06/2020 as per [facility] note and the US LE was negative in 10/11/2020 , can d/c the xarelto Dr Hilario [facility] 11/13/2021 , f/u in 6 months Bilateral cataracts 9572 2004 H26.[address] Green on 12/06/2020 , declined then and today to do cataract surgery, next f/u in one yearHe understand s the risks for untreated cataractsD oes not want any more referrals, understand s the risks! Onychomycosis 260903009 B35.[address] Rinaldi 11/08/2020 and did not want to get any treatment and f/u was PRNHe understand s the risks for untreated nail fungus Peripheral vascular disease 753027319 I73.9 S/p US 10/15/[address] Hilario 11/13/2021 , f/u in 6 months Hyperlipidemia 44025614 E78.5 Now on atorvastat in 40mg daily, renewed 10/22/2022 Get labs Primary er ectile dysfunction 805169242 N52.9 On tadalafil 20mg as needed, given by Dr Forde urology, can renew He would like to refill this, it was renewed today Pain of ri ght knee joint 4415592282 10999 M25.561 12/11/2021 : Ortho, Amadeo URBINA, pain was from the hip, refused surgery, f/u as needed Anemia 835911185 D64.[address] Ortega on 12/10/2022 On iron Disorder of prostate 302 84484 N42.9 Chronic ki dney disease 991078070 N18.9 Get a referral to Dr Burnham [id number] Lynette birch MD [facility] [address] [facility] [place] [address] 03/16/2023 14:20:07 03/16/2023 14:50:33 Screening - NAD 300060654 Z13.9 C-scope: 03/31/2021 : Dr Jiang next in 10 yearsGet yearly flu shotGet Tdap if not doneGet PCV #13 and then #23Get shingles vaccineGet COVID 19 vaccineHe refuses all vaccines 09/26/2020 , 02/27/2021 , 07/03/2021 , 10/22/2022 RTC in 4 monthsDo labsER if worseHe did verbalize his understand ing of the above Essential hypertension 71293663 I10 Off lisinopril 10mg daily, should not take this as he is on losartan! 03/16/2023 On losartan 50mg dailyOn lasix 40mg daily Get labs [facility] Dr Hilario 11/13/2021 , next in 6 months Deep venou s thrombosis of lower extremity 015040609 I82.409 On xarelto 20mg daily, wants to get off this, DVT on the L leg in 06/2020 as per [facility] note and the US LE was negative in 10/11/2020 , can d/c the xarelto Dr Hilario [facility] 11/13/2021 , f/u in 6 months Bilateral cataracts 9572 2004 H26.[address] Green on 12/06/2020 , declined then and today to do cataract surgery, next f/u in one yearHe understand s the risks for untreated cataractsD oes not want any more referrals, understand s the risks! Onychomycosis 702926818 B35.[address] Rinaldi 11/08/2020 and did not want to get any treatment and f/u was PRNHe understand s the risks for untreated nail fungus Peripheral vascular disease 638168881 I73.9 S/p US 10/15/[address] Hilario 11/13/2021 , f/u in 6 months Hyperlipidemia 35948441 E78.5 On atorvastat in 40mg dailyGet labs Primary er ectile dysfunction 238446860 N52.9 On tadalafil 20mg as needed, given by Dr Forde urology, can renew He would like to refill this, it was renewed today Pain of ri ght knee joint 6867086837 42295 M25.561 12/11/2021 : Ortho, Amadeo URBINA, pain was from the hip, refused surgery, f/u as needed Anemia 851521886 D64.[address] Ortega on 12/10/2022 On iron Chronic ki dney disease 879633567 N18.9 Get a referral to Dr Burnham [id number] Lynette birch MD [facility] Internal Med [address] [facility] [place] [address] 06/22/2023 14:01:38 06/22/2023 15:00:25 Screening - NAD [id number] Z13.9 C-scope: 03/31/2021 : Dr Jiang next in 10 yearsGet yearly flu shotGet Tdap if not doneGet PCV #13 and then #23Get shingles vaccineGet COVID 19 vaccineHe refuses all vaccines 09/26/2020 , 02/27/2021 , 07/03/2021 , 10/22/2022 , 06/22/2023 RTC in 4 monthsDo labsER if worseHe did verbalize his understand ing of the above Essential hypertension [id number] I10 Off lisinopril 10mg daily, should not take this as he is on losartan! 03/16/2023 On losartan 50mg dailyOn lasix 40mg daily Get labs [facility] Dr Hilario 11/13/2021 , next in 6 months ECHO 06/17/2023 : [facility] Deep venou s thrombosis of lower extremity 001253634 I82.409 On xarelto 20mg daily, wants to get off this, DVT on the L leg in 06/2020 as per [facility] note and the [place] LE was negative in 10/11/2020 , can d/c the xarelto Dr Hilario [facility] Bilateral cataracts 9572 2003 H26.[address] Green on 12/06/2020 , declined then and today to do cataract surgery, next f/u in one yearHe understand s the risks for untreated cataractsD oes not want any more referrals, understand s the risks! Onychomycosis 046901243 B35.[address] Rinaldi 11/08/2020 and did not want to get any treatment and f/u was PRN He understand s the risks for untreated nail fungus Peripheral vascular disease 151697231 I73.9 S/p US 10/15/[address] [facility] [address] Hilario 11/13/2021 , f/u in 6 months Hyperlipidemia 94819826 E78.5 On atorvastat in 40mg daily, renewed 06/22/2023 Get labs Primary er ectile dysfunction 554604186 N52.9 On tadalafil 20mg as needed, given by Dr Forde urology, can renew He would like to refill this, it was renewed today Pain of ri ght knee joint [id number] 29242 M25.561 12/11/2021 : Ortho, Amadeo URBINA, pain was from the hip, refused surgery, f/u as needed Anemia 457443045 D64.[address] Ortega on 12/10/2022 On iron Chronic ki dney disease 961917838 N18.[address] Carmelo Spear bumex 2mg dailyOn calcitriol On vit d weekly Urinary incontinence 165 233223 R32 On flomax 0.4mg daily Adult heal th examination 895643070 Z00.00 Screening for disorder 095613154 Z13.9 [id number] Lynette birch MD [facility] Internal Med [address], [address] [place] [address] 10/26/2023 14:46:18 10/26/2023 15:43:32 Screening - NAD 065438793 Z13.9 C-scope: 03/31/2021 : Dr Jiang next in 10 yearsGet yearly flu shotGet Tdap if not doneGet PCV #13 and then #23Get shingles vaccineGet COVID 19 vaccineHe refuses all vaccines 09/26/2020 , 02/27/2021 , 07/03/2021 , 10/22/2022 , 06/22/2023 Today 10/26/2023 states that he will not get 'any shots'RTC in 4 monthsDo labsER if worseHe did verbalize his understand ing of the above Essential hypertension 90962496 I10 Off lisinopril 10mg daily, should not take this as he is on losartan! 03/16/2023 On losartan 50mg dailyOn lasix 40mg daily Get labs [facility] Dr Hilario 11/13/2021 , next in 6 months ECHO 06/17/2023 : [facility] Deep venou s thrombosis of lower extremity 145456027 I82.409 On xarelto 20mg daily, wants to get off this, DVT on the L leg in 06/2020 as per [facility] note and the US LE was negative in 10/11/2020 , can d/c the xarelto Dr Hilario [facility] Bilateral cataracts 9572 2003 H26.[address] Green on 12/06/2020 , declined then and today to do cataract surgery, next f/u in one yearHe understand s the risks for untreated cataractsD oes not want any more referrals, understand s the risks! Onychomycosis 910223983 B35.[address] Rinaldi 11/08/2020 and did not want to get any treatment and f/u was PRN He understand s the risks for untreated nail fungus Peripheral vascular disease 433618815 I73.9 S/p US 10/15/[address] [facility] [address] Hilario 11/13/2021 , f/u in 6 months Hyperlipidemia 17426225 E78.5 On atorvastat in 40mg daily, renewed 06/22/2023 Get labs Primary er ectile dysfunction 846094658 N52.9 On tadalafil 20mg as needed, given by Dr Forde urology, can renew He would like to refill this Pain of ri ght knee joint 2880674519 12251 M25.561 12/11/2021 : Ortho, Amadeo URBINA, pain was from the hip, refused surgery, f/u as needed Anemia 663000201 D64.[address] Ortega on 12/10/2022 On iron Chronic ki dney disease 182573696 N18.[address] Burnham IJOn bumex 2mg dailyOn calcitriol On vit d weekly Urinary incontinence 165 940424 R32 On flomax 0.4mg daily [id number] Lynette birch MD [facility] Internal Med [facility] [address] [facility], [facility] [address] [place] [address] 03/09/2024 14:46:09 03/09/2024 15:26:16 Screening - NAD [id number] Z13.9 C-scope: 03/31/2021 : Dr Jiang next [...] understand ing of the above Essential hypertension 59591963 I10 Off lisinopril 10mg daily, should not take this as he is on losartan! 03/16/2023 On losartan 50mg dailyNot on lasix 40mg dailyOn bumex 2mg daily Get labs [facility] Dr Hilario 11/13/2021 , next in 6 months ECHO 06/17/2023 : [facility] Deep venou s thrombosis of lower extremity 051014526 I82.409 On xarelto 20mg daily, wants to get off this, DVT on the L leg in 06/2020 as per [facility] note and the US LE was negative in 10/11/2020 , can d/c the xarelmercedes Hilario [facility] Bilateral cataracts 9572 2003 H26.[address] Green on 12/06/2020 , declined then and today to do cataract surgery, next f/u in one yearHe understand s the risks for untreated cataractsD oes not want any more referrals, understand s the risks! Onychomycosis 001532820 B35.[address] Rinaldi 11/08/2020 and did not want to get any treatment and f/u was PRN He understand s the risks for untreated nail fungus Peripheral vascular disease 429195251 I73.9 S/p US 10/15/[address] [facility] [address] Hilario 11/13/2021 , f/u in 6 months Hyperlipidemia 10319555 E78.5 On atorvastat in 40mg daily, renewed 06/22/2023 Get labs Primary er ectile dysfunction 260661376 N52.9 On tadalafil 20mg as needed, given by Dr Forde urology, can renew He would like to refill this, refilled 03/09/2024 Pain of ri ght knee joint 3408868158 89366 M25.561 12/11/2021 : Ortho, Amadeo URBINA, pain was from the hip, refused surgery, f/u as needed Anemia 794265413 D64.[address] Ortega on 12/10/2022 On iron Chronic ki dney disease 215766811 N18.[address] Burnham IJOn bumex 2mg dailyOn calcitriol On vit d weekly Urinary incontinence 165 548448 R32 On flomax 0.4mg daily Hyperthyroidism 28241585 E05.90 US thyroid 02/18/2024 : Next in one yearRefer to endocrine Serum daniel min B12 below reference range 675617219 R79.89 Should get B12 weekly and then monthly and repeat the labs in 3 months [id number] Lynette birch MD [facility] [address] [facility] [address] [place] [address] 07/13/2024 13:59:26 07/13/2024 14:59:03 Screening - NAD 564273217 Z13.9 C-scope: 03/31/2021 : Dr Jiang next [...] understand ing of the above Essential hypertension 11726169 I10 Off lisinopril 10mg daily, should not take this as he is on losartan! 03/16/2023 On losartan 50mg dailyNot on lasix 40mg dailyOn bumex 2mg daily Get labs [facility] Dr Hilario 11/13/2021 , next in 6 months ECHO 06/17/2023 : [facility] Deep venou s thrombosis of lower extremity 219536160 I82.409 On xarelto 20mg daily, wants to get off this, DVT on the L leg in 06/2020 as per [facility] note and the LE was negative in 10/11/2020 , can d/c the xarelto Dr Hilario [facility] Bilateral cataracts 9572 2003 H26.[address] Green on 12/06/2020 , declined then and today to do cataract surgery, next f/u in one yearHe understand s the risks for untreated cataractsD oes not want any more referrals, understand s the risks! Onychomycosis 484275986 B35.[address] Rinaldi 11/08/2020 and did not want to get any treatment and f/u was PRN He understand s the risks for untreated nail fungus Peripheral vascular disease 294534377 I73.9 S/p US 10/15/[address] [facility] [address] Hilario 11/13/2021 , f/u in 6 months Hyperlipidemia 81320128 E78.5 On atorvastat in 40mg daily, renewed 07/13/2024 , he prefers only 30 day refillsGet labs Primary er ectile dysfunction 206528034 N52.9 On tadalafil 20mg as needed, given by Dr Forde urology, can renew He would like to refill this, refilled 03/09/2024 Pain of ri ght knee joint 6965465315 00758 M25.561 12/11/2021 : Ortho, Amadeo URBINA, pain was from the hip, refused surgery, f/u as needed Anemia 748319685 D64.[address] Ortega on 12/10/2022 On iron Chronic ki dney disease 233423488 N18.[address] Carmelo SERRANOOn bumex 2mg dailyOn calcitriol On vit d weekly Urinary incontinence 165 607926 R32 On flomax 0.4mg daily Hyperthyroidism 04653337 E05.90 US thyroid 02/18/2024 : Next in one yearRefer to endocrine Serum daniel min B12 below reference range 141805727 R79.89 Should get B12 weekly and then monthly and repeat the labs in 3 months OV 07/13/2024 :B12 832 06/30/2024 , no need for more B12, can do OTC MVI [id number] Lynette birch MD [facility] Internal Med [facility] [address] [facility], [facility] [address] [place] [address] 10/19/2024 14:22:48 10/19/2024 15:26:35 Screening - NAD 351360617 Z13.9 C-scope: 03/31/2021 : Dr Jiang next [...] understand ing of the above Essential hypertension 16027058 I10 Off lisinopril 10mg daily, should not take this as he is on losartan! 03/16/2023 On losartan 50mg dailyNot on lasix 40mg dailyOn bumex 2mg daily Get labs [facility] Dr Hilario 11/13/2021 , next in 6 months ECHO 06/17/2023 : [facility] Deep venou s thrombosis of lower extremity 212653446 I82.409 On xarelto 20mg daily, wants to get off this, DVT on the L leg in 06/2020 as per [facility] note and the US LE was negative in 10/11/2020 , can d/c the xarelto Dr Hilario [facility] Bilateral cataracts 9572 2004 H26.[address] Green on 12/06/2020 , declined then and today to do cataract surgery, next f/u in one yearHe understand s the risks for untreated cataractsD oes not want any more referrals, understand s the risks! Onychomycosis 228317371 B35.[address] Rinaldi 11/08/2020 and did not want to get any treatment and f/u was PRN He understand s the risks for untreated nail fungus Peripheral vascular disease 048154207 I73.9 S/p US 10/15/[address] [facility] [address] Hilario 11/13/2021 , f/u in 6 months Hyperlipidemia 34008250 E78.5 On atorvastat in 40mg daily, renewed 07/13/2024 Get labs Primary er ectile dysfunction 776555727 N52.9 On tadalafil 20mg as needed, given by Dr Forde urology, can renew He would like to refill this, refilled 03/09/2024 Pain of ri ght knee joint 1211966106 92004 M25.561 12/11/2021 : Ortho, Amadeo URBINA, pain was from the hip, refused surgery, f/u as needed Anemia 066578691 D64.[address] Ortega on 12/10/2022 On iron Chronic ki dney disease 967279698 N18.[address] Carmelo Spear bumex 2mg dailyOn calcitriol On vit d weekly Urinary incontinence 165 454600 R32 On flomax 0.4mg daily Hyperthyroidism 19647326 E05.90 US thyroid 02/18/2024 : Next in one yearRefer to endocrine Serum daniel min B12 below reference range 144888112 R79.89 Should get B12 weekly and then monthly and repeat the labs in 3 months OV 07/13/2024 :B12 832 06/30/2024 , no need for more B12, can do OTC MVI [id number] Lynette birch MD [facility] Internal [facility] [address] , [address] [place] [address] 01/18/2025 14:06:05 01/18/2025 15:01:17 Screening - NAD 340609168 Z13.9 C-scope: 03/31/2021 : Dr Jiang next [...] understand ing of the above Essential hypertension 05974069 I10 Off lisinopril 10mg daily, should not take this as he is on losartan! 03/16/2023 On losartan 50mg dailyNot on lasix 40mg dailyOn bumex 2mg daily Get labs [facility] Dr Hilario 11/13/2021 , next in 6 months ECHO 06/17/2023 : [facility] Deep venou s thrombosis of lower extremity 119104004 I82.409 On xarelto 20mg daily, wants to get off this, DVT on the L leg in 06/2020 as per [facility] note and the US LE was negative in 10/11/2020 , can d/c the xarelto Dr Hilario [facility] Bilateral cataracts 9572 2003 H26.[address] Green on 12/06/2020 , declined then and today to do cataract surgery, next f/u in one yearHe understand s the risks for untreated cataractsD oes not want any more referrals, understand s the risks! Onychomycosis 373427193 B35.[address] Rinaldi 11/08/2020 and did not want to get any treatment and f/u was PRN He understand s the risks for untreated nail fungus Peripheral vascular disease 248295211 I73.9 S/p US 10/15/[address] [facility] [address] Hilario 11/13/2021 , f/u in 6 months Hyperlipidemia 63488716 E78.5 On atorvastat in 40mg daily, renewed 07/13/2024 Get labs Primary er ectile dysfunction 119070210 N52.9 On tadalafil 20mg as needed, given by Dr Forde urology, can renew He would like to refill this, refilled 03/09/2024 Pain of ri ght knee joint 2653495710 81633 M25.561 12/11/2021 : Ortho, Amadeo URBINA, pain was from the hip, refused surgery, f/u as needed Anemia 601184037 D64.[address] Ortega on 12/10/2022 On iron Chronic ki dney disease 132156369 N18.[address] Burnham IJOn bumex 2mg dailyOn calcitriol On vit d weekly Urinary incontinence 165 882852 R32 On flomax 0.4mg daily Hyperthyroidism 42096622 E05.90 US thyroid 02/18/2024 : Next in one yearRefer to endocrine Serum daniel min B12 below reference range 249078633 R79.89 Should get B12 weekly and then monthly and repeat the labs in 3 months OV 07/13/2024 :B12 832 06/30/2024 , no need for more B12, can do OTC MVI [id number] Lynette birch MD [facility] [address] [facility] [place] [address] 05/17/2025 14:09:57 05/17/2025 15:38:16 Screening - NAD 913715243 Z13.9 C-scope: 03/31/2021 : Dr Jiang next [...] understand ing of the above Essential hypertension 31489307 I10 Off lisinopril 10mg daily, should not take this as he is on losartan! 03/16/2023 On losartan 50mg dailyNot on lasix 40mg dailyNot on bumex 2mg daily Get labs [facility] Dr Hilario 11/13/2021 , next in 6 months ECHO 06/17/2023 : [facility] Deep venou s thrombosis of lower extremity 391500772 I82.409 On xarelto 20mg daily, wants to get off this, DVT on the L leg in 06/2020 as per [facility] note and the US LE was negative in 10/11/2020 , can d/c the xarelto Dr Hilario [facility] Bilateral cataracts 9572 2003 H26.[address] Green on 12/06/2020 , declined then and today to do cataract surgery, next f/u in one yearHe understand s the risks for untreated cataractsD oes not want any more referrals, understand s the risks! Onychomycosis 113024353 B35.[address] Rinaldi 11/08/2020 and did not want to get any treatment and f/u was PRN He understand s the risks for untreated nail fungus Peripheral vascular disease 030365131 I73.9 S/p US 10/15/[address] [facility] [address] Hilario 11/13/2021 , f/u in 6 months Hyperlipidemia 79067998 E78.5 On atorvastat in 40mg daily, more diet and exercise is neededStat es that he did not take this as he 'ran out', renewed today 05/17/2025 Get labs Primary er ectile dysfunction 482782448 N52.9 On tadalafil 20mg as needed, given by Dr Forde urology Pain of ri ght knee joint 2696101292 16197 M25.561 12/11/2021 : Ortho, Amadeo URBINA, pain was from the hip, refused surgery, f/u as needed Anemia 499105860 D64.[address] Ortega on 12/10/2022 On iron Chronic ki dney disease 557422829 N18.[address] Carmelo IJNot on bumex 2mg dailyOn calcitriol On vit d weekly Urinary incontinence 165 066817 R32 On flomax 0.4mg daily Hyperthyroidism 70530439 E05.90 US thyroid 02/18/2024 : Next in one yearRefer to endocrine Serum daniel min B12 below reference range 882974991 R79.89 Should get B12 weekly and then monthly and repeat the labs in 3 months OV 07/13/2024 :B12 832 06/30/2024 , no need for more B12, can do OTC MVI Health Concerns Section Related Observation LastModified by Organization Detai ls LastModified Time None Recorded Concern Status LastModified by Organization Details LastModified Time None Recorded Advance Directives Directive Y: Payers Insurance Date Sequence Insurance Name Policy Number Policy Prieto Covered Member ID Prieto Member ID Guarantor Name 05/17/2025 1 [place] Matt Shelton [id number] Matt Shelton 05/17/2025 3 [employer] (MEDICARE REPLACEMENT /ADVANTAGE - HMO) Matt Shelton [id number] Matt Shelton 05/17/2025 2 [place] Matt Shelton [id number] Matt Shelton 05/17/2025 2 [employer] - MAIL HANDLERS BENEFIT PLAN (POS II) [id number] Matt Shelton [id number] Matt Shelton 05/17/2025 1 [employer] (POS) [id number] Matt Shelton [id number] Matt Shelton 05/17/2025 1 [employer] (POS II) [id number] Matt Shelton [id number] Matt Shelton 05/17/2025 1 [place] Matt Shelton [id number] Matt Shelton 05/17/2025 1 [employer] (MEDICARE REPLACEMENT /ADVANTAGE - HMO) [id number] Matt Shelton [id number] Matt Shelton 05/17/2025 1 [place] Matt Shelton [id number] Matt Shelton 05/17/2025 1 [employer] (POS) [id number] Matt Shelton [id number] Matt Shelton 05/17/2025 3 [employer] (MEDICARE REPLACEMENT /ADVANTAGE - PPO) Matt Shelton [id number] Matt Shelton 05/17/2025 1 [employer] - PRIME (MEDICARE REPLACEMENT /ADVANTAGE - HMO) [id number] Matt Shelton [id number] Matt Shelton 05/17/2025 1 [employer] - PRIME (MEDICARE REPLACEMENT /ADVANTAGE - HMO) [id number] Matt Shelton [id number] Matt Shelton 05/17/2025 2 [employer] (POS II) [id number] Matt Shelton [id number] Matt Shelton Notes Date Note Type Note Provider Name and Address Organization Details Recorded Time 03/09/2024 text/html OV 09/26/2020:Here establish carePast Hx:HTNDVTReviewed social [...] Dr Guerrero would like something cheaper than eliquisHe also would like to get cialisOV 02/27/2021:Here for his 4 month aptHe is doing wellHe did see podiatry and eye MDHe did also see GI Dr JiangOV 07/03/2021:Here for his routine aptHe is doing [...] he did do the labs on 01/26/2024 Lynette Bentley MD [address], [address], [place], [address], [place] [facility] 03/09/2024 15:39:59 07/13/2024 text/html OV 09/26/2020:Here establish carePast Hx:HTNDVTReviewed social [...] Dr Guerrero would like something cheaper than Markie also would like to get cialisOV 02/27/2021:Here [...] chol med refilled as well his tadalafil Lynette Bentley MD [address], [address], [place], [address], [place] [facility] 07/13/2024 16:39:28 10/19/2024 text/html OV 09/26/2020:Here establish carePast Hx:HTNDVTReviewed social [...] Dr Guerrero would like something cheaper than Markie also would like to get cialisOV 02/27/2021:Here [...] is doing wellHe did the labs on 11/04/2021V 05/07/2022:Here for his f/u apt, he is [...] at a time for his chol med Lynette Bentley MD [address], [address], [place], [address], [place] [facility] 10/19/2024 15:31:02 01/18/2025 text/html OV 09/26/2020:Here establish carePast Hx:HTNDVTReviewed social [...] Dr Guerrero would like something cheaper than eliquisHe also would like to get cialisOV 02/27/2021:Here [...] refilled, did do the labs are [facility] Lynette Bentley MD [address] [facility], [address], [place], [address], [facility] [employer] 01/18/2025 15:00:43 05/17/2025 text/html OV 09/26/2020:Here establish carePast Hx:HTNDVTReviewed [...] Dr Guerrero would like something cheaper than eliSunny also would like to get cialisOV 02/27/2021:Here for his 4 month aptHe is doing wellHe did see podiatry and eye MDHe did also see GI Dr JiangOV 07/03/2021:Here for his routine aptHe is doing [...] on the chol medicine Lynette Bentley MD [address], [address], [place], [address], [place] [facility] 05/17/2025 15:51:17
== END 2025-07-24 13:04 | disposition home or self-care (01) ==
PROVIDERS: Visit Provider Urology
DX: C61 Malignant neoplasm of prostate (principal); R59.0 Localized enlarged lymph nodes; K80.20 Calculus of gallbladder without cholecystitis without obstruction
CPT/HCPCS: 78815; A9596